=== PATIENT | female | born 1980 | race Caucasian/White ===

== ENCOUNTER 2023-01-15 14:25 | Outpatient (OUT) | payer BC, SELFPAY | END 2023-01-15 14:26 | disposition home or self-care (01) | PROVIDERS: PCP Family Medicine; Visit Provider Obstetrics & Gynecology | DX: Z01.810 Encounter for preprocedural cardiovascular examination (principal); Z30.2 Encounter for sterilization; N92.0 Excessive and frequent menstruation with regular cycle; N93.9 Abnormal uterine and vaginal bleeding, unspecified; R10.2 Pelvic and perineal pain | CPT/HCPCS: 93005 ==

== ENCOUNTER 2023-01-22 06:07 | Day surgery (SDC) | payer BC, SELFPAY ==
--- NOTE | 2023-01-15 14:44 | ECG_ITS ---
[facility] Test Date: 2023-01-15 Pat Name: CANDIDA LORENZO Department: Room: - Gender: Female [employer] Director: : 1980 Requested By: JAIMEE FRANCO Order Number: [id number] Reading MD: JUANCARLOS WANG Measurements Intervals [place] Rate: 65 P: 49 OK: 159 QRS: -1 QRSD: 87 T: 16 QT: 378 QTc: 395 Interpretive Statements SINUS RHYTHM LOW QRS VOLTAGE IN PRECORDIAL LEADS [QRS DEFLECTION < 1.0 mV IN CHEST LEADS] No previous ECG available for comparison Electronically Signed On 01-18-2023 13:05:09 EDT by JUANCARLOS WANG
[2023-01-15 15:06] VITALS: BP 118/70; PULSE 85; RESP 20; TEMP 36.6; O2SAT 97; BMI 42.7
[2023-01-22] VITALS (13 sets, daily range): BP systolic 99–151; BP diastolic 63–87; PULSE 40–74; RESP 12–21; TEMP 36.4–36.6; O2SAT 92–98; BMI 41.8
[2023-01-22 06:33] LABS: Basophils Percent Auto 0.2 % (0.2-2.0); Eosinophils Absolute Auto 0.1 10^3/uL (0.0-0.7); Eosinophils Percent Auto 1.2 % (0.9-7.0); Hematocrit 40.6 % (36.0-48.0); Immature Granulocytes Abs Auto 0.02 10^3/uL (0.00-0.03); Immature Granulocytes Pct Auto 0.3 % (0.0-0.5); Lymphocytes Absolute Auto 1.6 10^3/uL (1.2-3.8); Lymphocytes Percent Auto 26.1 % (20.5-60.0); Mean Corpuscular HGB Conc 34.5 g/dL (29.9-35.2); Mean Corpuscular Hemoglobin 32.9 pg (26.7-34.0); Mean Corpuscular Volume 95.3 fL (81.0-99.0); Mean Platelet Volume 10.7 fL (9.5-13.5); Monocytes Absolute Auto 0.5 10^3/uL (0.3-0.8); Monocytes Percent Auto 8.6 % (1.7-12.0); Neutrophils Absolute Auto 3.9 10^3/uL (1.4-6.5); Neutrophils Percent Auto 63.6 % (43.0-75.0); Platelet Count 276 10^3/uL (150-450); Red Blood Count 4.26 10^6/uL (4.20-5.40); Red Cell Distribution Width 12.8 % (11.0-15.0); White Blood Count 6.1 10^3/uL (4.0-11.0)
[2023-01-22] MEDS: LACTATED RINGER'S SOLUTION 1,000 ML 50 ML IV ×2 (06:40→10:10)
[2023-01-22 06:54] LABS: HCG Quantitative <1 mIU/mL
--- NOTE | 2023-01-22 09:01 | P.ON_ITS ---
Brief Operative Note Date of procedure: 01/22/23 Pre-op diagnosis: pelvic pain, aub, dysmenorrhea Post-op diagnosis: same as pre-op Procedure: NAME OF PROCEDURE: robotic assisted bilateral laparoscopic salpingectomy with removal of essure coils, with lt ovarian cystectomy, rt ovarian cystotomy PROCEDURE: The patient was taken back to the Operating Room where she was given general anesthesia without difficulty. She was then prepped and draped in the normal sterile fashion after being placed in a dorsal lithotomy position. A wet sponge stick was placed into the patient's vagina. Attention was then turned to the patient's abdomen, where a scalpel was used to make a small infraumbilical incision. The S retractors were then used to dissect the underlying layers until the fascia could be seen. The fascia was then grasped with Bart clamps and tented up. A knife was then used to make a small incision to the fascia. The muscle was identified, at that time two sutures of #0 Vicryl on a GI needle was then used and placed through the fascia. the peritoneum was then identified and entered bluntly. The 10-4 Christian was then placed into the patient's abdomen. This was confirmed with direct visualization of the bowel, using the laparoscope. The patient's abdomen was then insufflated using approximately 4 liters of CO2 gas. Survey of the patient's abdomen demonstrated ovaries with bilateral ovarian cyst. normal appearing tubes and uterus. A second and third rt and lt lateral robotic ports which were 8 mm in size, was then placed after the skin incision was made under direct visualization .robotic arms were engaged. The patient's tube on the patient's right side was identified and tented up using a grasper, the vessel sealer apparatus was then used to come across the mesosalpingx from the fimbriated end to the insertion site at the uterus, the tube was then amputated and removed in its entirety. The essure coils were removed in its entirety. This was done on the contralateral side. The tubes were the removed from the patients abdomen along with coils, lt ovarian cystectomy was performed using vessel sealer and rt ovarian cystotomy using vessel sealer Excellent hemostasis was noted. The lateral ports were then moved under direct visualization with excellent hemostasis. All instruments were removed from the patient's abdomen. The fascia was closed using the #0 Vicryl on GI needle. The skin was closed using 4-0 Vicryl subcuticularly. All instruments were removed from the patient's vagina as well. The patient was taken out of the dorsal lithotomy position and placed in the supine position and taken to r ecovery in stable condition. Sponge, lap and needle counts were correct x2. Anesthesia: DASHA Surgeon: Jacoby Green Director Executive Communications: Edita Hi Estimated blood loss (mL): 5 Pathology: none sent (tubes and coils) Condition: stable Disposition: PACU
[2023-01-22] MEDS: HYDROMORPHONE HCL 0.5 MG/0.5 ML SYRINGE 0.4 MG IV ×2 (09:25→09:30)
== END 2023-01-22 11:31 | disposition home or self-care (01) ==
PROVIDERS: PCP Family Medicine; Visit Provider Obstetrics & Gynecology
PROC: (CPT 58563; principal; 2023-01-22 07:30)
DX: Z30.2 Encounter for sterilization (principal); N92.0 Excessive and frequent menstruation with regular cycle; N93.9 Abnormal uterine and vaginal bleeding, unspecified; R10.2 Pelvic and perineal pain; N83.8 Other noninflammatory disorders of ovary, fallopian tube and broad ligament; Z87.891 Personal history of nicotine dependence; N83.202 Unspecified ovarian cyst, left side; N83.201 Unspecified ovarian cyst, right side
CPT/HCPCS: 58563; 58661; 36415; 84702; 85025; 88304; 88305; J1170; J2704

== ENCOUNTER 2023-10-21 15:51 | Outpatient (OUT) | payer OTHER, SELFPAY ==
--- NOTE | 2023-10-21 15:58 | MM_ITS ---
Patient Name: CANDIDA LORENZO MR#: [id number] : 1980 Exam Date: 10/21/2023 Ordering Doctor: DR Jacoby Green . RADIOLOGY REPORT PROCEDURE: MM TOMOSYNTHESIS SCREENING BI COMPARISON: MG MAMM SCREEN LINDA W CAD, 02/11/2018. MG MAMM SCREEN LINDA W CAD, 03/07/2019. INDICATIONS: Screening Calculator Name NCI Breast Cancer Risk Assessment Tool 5 Year Breast Cancer Risk 0.60% Lifetime Breast Cancer Risk 7.00% Personal Breast Cancer No Personal Ovarian Cancer No Treatments None Family Cancers None LOCATION: [facility] BREAST COMPOSITION: There are scattered areas of fibroglandular density. FINDINGS: DIAGNOSTIC CATEGORY 1--NEGATIVE. NO CHANGE FROM COMPARISON ASSESSMENT. Scattered benign-appearing calcifications are present. Scattered benign-appearing lymph nodes are present. RIGHT BREAST: No significant suspicious finding. LEFT BREAST: No significant suspicious finding. RECOMMENDATIONS: ROUTINE MAMMOGRAM AND CLINICAL EVALUATION IN 12 MONTHS. PLEASE NOTE: A NORMAL MAMMOGRAM DOES NOT EXCLUDE THE POSSIBILITY OF BREAST CANCER. A CLINICALLY SUSPICIOUS PALPABLE LUMP SHOULD BE BIOPSIED. Dictated by: Jem Castro MD on 10/22/2023 at 09:39 Approved by: Jem Castro MD on 10/22/2023 at 09:57
[2023-10-21 16:59] LABS: Basophils Percent Auto 0.3 % (0.2-2.0); Eosinophils Absolute Auto 0.1 10^3/uL (0.0-0.7); Eosinophils Percent Auto 1.2 % (0.9-7.0); Hematocrit 37.8 % (36.0-48.0); Hemoglobin 13.3 g/dL (12.0-16.0); Immature Granulocytes Abs Auto 0.02 10^3/uL (0.00-0.03); Immature Granulocytes Pct Auto 0.3 % (0.0-0.5); Lymphocytes Absolute Auto 1.7 10^3/uL (1.2-3.8); Lymphocytes Percent Auto 22.8 % (20.5-60.0); Mean Corpuscular HGB Conc 35.2 g/dL (29.9-35.2); Mean Corpuscular Hemoglobin 32.6 pg (26.7-34.0); Mean Corpuscular Volume 92.6 fL (81.0-99.0); Mean Platelet Volume 10.6 fL (9.5-13.5); Monocytes Absolute Auto 0.6 10^3/uL (0.3-0.8); Monocytes Percent Auto 7.7 % (1.7-12.0); Neutrophils Absolute Auto 5.2 10^3/uL (1.4-6.5); Neutrophils Percent Auto 67.7 % (43.0-75.0); Platelet Count 279 10^3/uL (150-450); Red Blood Count 4.08 10^6/uL (4.20-5.40); Red Cell Distribution Width 12.3 % (11.0-15.0); White Blood Count 7.6 10^3/uL (4.0-11.0)
== END 2023-10-21 15:52 | disposition home or self-care (01) ==
LOC: MAMMO 15:53
PROVIDERS: PCP Family Medicine; Visit Provider Obstetrics & Gynecology
DX: Z12.31 Encounter for screening mammogram for malignant neoplasm of breast (principal); Z79.899 Other long term (current) drug therapy
CPT/HCPCS: 36415; 77063; 77067; 85025

== ENCOUNTER 2024-02-03 16:02 | Outpatient (OUT) | payer OTHER, SELFPAY ==
--- OUTSIDE RECORDS SUMMARY | 2024-02-03 16:16 | XMS_ITS | CCD ---
Author Organization [facility] Care Team Providers Care Librarian Helper Name Role Phone ERICKA TAMEZ Admitting Unavailable ERICKA TAMEZ Attending MARICRUZ Haddad V Consulting Unavailable ERICKA TAMEZ Consulting Unavailable BRENNAN MARI Attending Unavailable KWAN LUNDBERG Attending Unavailab KWAN Barriga Attending Rosendoab JESSICA Mejía Attending Unavailable KWAN LUNDBERG Referring UnavailKWAN Hernandez Attending Rosendoab BRENNAN Sandra Attending Unavailable BRENNAN MARI Attending Unavailable Medications Current Medications Medication Drug Class(es) Dates Sig (Normalized) Sig (Original) 24 hr metFORMIN hydrochloride 500 mg extended release oral tablet (1 source) Biguanide Start: 10-30-2023 take 500 mg by mouth once daily in the evening Metformin Active 500 MG PO Every evening October 30, 2023 12:00am ondansetron 4 mg disintegrating oral tablet (1 source) Serotonin-3 Receptor Antagonist Start: 10-30-2023 take 4 mg by mouth every six hours Ondansetron Active 4 MG PO Every 6 hours 15 5 October 30, 2023 12:00am rizatriptan 10 mg oral tablet (1 source) Serotonin-1b and Serotonin-1d Receptor Agonist Start: 10-30-2023 Rizatriptan Active 10 MG PO As Directed October 30, 2023 12:00am semaglutide (1 source) Start: 10-30-2023 semaglutide Active 1.2 MG IM October 30, 2023 12:00am Problems Problem Classification Problem Date Documented Da te Episodic/Chronic Headache; including migraine (2 sources) Migraine; Translations: [Migraine, unspecified, not intractable, without status migrainosus] 10-30-2023 Chronic Other screening for suspected conditions (not mental disorders or infectious disease) (4 sources) Encounter for screening mammogram for malignant neoplasm of breast; Translations: [ENC SCR MAMMO MALIG NEOPLASM BREAST] Onset: 03-07-2019 Episodic Results Test Name Value Interpretation Reference Range Facil ity Q - CULTURE,URINE,ROUTINEon 04-28-2021 CULTURE, URINE, ROUTINE SEE NOTE Normal [facility] [employer]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 No further testing will be performed. If clinically indicated, recollection using a method to minimize contamination, with prompt transfer to Urine Culture Transport Tube, is recommended. Performed By: #### [id number] #### [facility] Default [address] [place] [address] MG MAMM SCREEN LINDA W CADon 1 05-07-2018 MG MAMM SCREEN LINDA W CAD Patient: CANDIDA LORENZO Exam Date: 03/07/2019 : 1980 Gender:F Ordering : ROSELIA TAMEZ Admission #: [id number] Family : Order #: [id number] CLICK HERE TO VIEW EXAM RADIOLOGY REPORT PROCEDURE: MAMMOGRAM BILATERAL SCREENING DIGITAL WITH COMPUTER AIDED DETECTION COMPARISON: MG MAMM SCREEN LINDA W CAD, 10/06/2016. MG MAMM SCREEN LINDA W CAD, 02/11/2018. INDICATIONS: Screening mammography Calculator Name NCI Breast Cancer Risk Assessment Tool 5 Year Breast Cancer Risk 0.40% Lifetime Breast Cancer Risk 7.30% Personal Breast Cancer No Personal Ovarian Cancer No Treatments None Family Cancers None LOCATION: [facility] BREAST COMPOSITION: Scattered areas fibroglandular density. FINDINGS: DIAGNOSTIC CATEGORY 2--BENIGN FINDING NO CHANGE FROM COMPARISON ASSESSMENT. Bilateral square markers indicate open sores on the patient's skin, no corresponding mammographic abnormality. Scattered benign-appearing calcifications are present. Scattered benign-appearing lymph nodes are present. RIGHT BREAST: No significant suspicious finding. LEFT BREAST: No significant suspicious finding. RECOMMENDATIONS: ROUTINE MAMMOGRAM AND CLINICAL EVALUATION IN 12 MONTHS. PLEASE NOTE: A NORMAL MAMMOGRAM DOES NOT EXCLUDE THE POSSIBILITY OF BREAST CANCER. A CLINICALLY SUSPICIOUS PALPABLE LUMP SHOULD BE BIOPSIED. Dictated by: Maricruz Castro M.D. on 03/08/2019 at 07:36 Approved by: Maricruz Castro M.D. on 03/08/2019 at 07:38 Normal [facility] Vital Signs Date Time Vital Sign Value Performing Clinician Arianna kenny 10-30-2023 13:57-0400 Body height 162.56 cm [facility] 10-30-2023 13:57-0400 Body mass index (BMI) [Ratio] 40.6 kg/m2 [facility] 10-30-2023 13:57-0400 Body temperature 98.2 [degF] [facility] 10-30-2023 13:57-0400 Body weight 107.5 kg [facility] 10-30-2023 13:57-0400 Diastolic blood pressure 82 mm[Hg] [facility] 10-30-2023 13:57-0400 Heart rate 71 /min [facility] 10-30-2023 13:57-0400 Respiratory rate 18 /min [facility] 10-30-2023 13:57-0400 SaO2% (BldA) [Mass fraction] 98 % [facility] 10-30-2023 13:57-0400 Systolic blood pressure 127 mm[Hg] [facility] Encounters Encounter Date Encounter Type Care Provider Facility Start: 12-20-2023 End: 12-20-2023 ambulatory BRENNAN MARI Not Available Start: 11-22-2023 End: 11-22-2023 ambulatory KWAN LUNDBERG Not Available Start: 11-17-2023 End: 11-17-2023 ambulatory JESSICA HARPER Not Available Start: 11-10-2023 End: 11-10-2023 ambulatory KWAN LUNDBERG Not Available Start: 10-30-2023 End: 10-30-2023 ambulatory [facility] Work Phone: Start: 10-30-2023 End: 10-30-2023 Patient encounter procedure [facility] Work Phone: Start: 05-26-2023 End: 05-26-2023 ambulatory KWAN BAKERPATRICK Not Available Start: 05-05-2023 End: 05-05-2023 ambulatory BRENNAN MARI Not Available Start: 04-07-2023 End: 04-07-2023 ambulatory BRENNAN MARI Not Available Start: 03-07-2019 End: 03-08-2019 Patient encounter procedure ERICKA TAMEZ Facility:[facility] Payers Date Payer Category Payer Unknown [id number] 2023 Unknown 1980 Unknown [id number] 2.16.84 [id number] 1980 Unknown [id number] 2.16.84 [id number] 1980 Unknown [id number] 2.16.84 [id number] 1980 Unknown [id number] 2.16.84 [id number] 1980 Unknown [id number] 2.16.84 [id number] 1980 Unknown [id number] 2.16.84 [id number] 1980 Unknown [id number] [id number] .[id number] 1980 Unknown [id number] [id number] .[id number] 1961 Unknown [id number] Social History Date Type Detail Facility Start: [facility]23 [facility] Start: 1980 Sex Assigned At Female F [facility] Evaluation note Note Date & Type Note Facility Evaluation note Diagnosis Onset Date Migraines acute [facility] Work Phone: Summary Purpose Family History No Family History Records FoundNo Family History Records FoundNo Family History Records Found Advance Directives No Advanced Directives Records Found Advance Directive Response Recorded Date/ Time Advance Directives No October 29 1:35pm Chief Complaint and Reason for Visit Chief Complaint Headache, nausea, po ss migraine Reason for Visit Migraines Additional Source Comments INFORMATION SOURCE (unrecogn ized section and content) DATE CREATED AUTHOR 03/17/2019 [facility] DATE CREATED AUTHOR AUTHOR'S ORGANIZ ATION 04/30/2021 [facility] DATE CREATED AUTHOR AUTHOR'S ORGANIZ ATION 12/20/2023 [facility] EPIC Care Teams (unrecognized sec tion and content) Team Status: Active Member Role Status Dates Angie Barcenas MD Primary Care Provide r Active Team Status: Inactive Member Role Status Dates Marla Bruno APRN Attending Provider Active Start: October 30, 2023 End: October 30, 2023 Angie Barcenas MD Primary Care Provide r Active Start: October 30, 2023 End: October 30, 2023 Goals (unrecognized section and content) Goals may be documented in a n alternate section FOR RECORDS PERTAINING TO PATIENTS WHO ARE OR HAVE BEEN ENROLLED IN A CHEMICAL DEPENDENCY/SUBSTANCEABUSE PROGRAM, SOME INFORMATION MAY BE OMITTED. This clinical summary was aggregated from multiple sources. Caution should be exercised in using it in the provision of clinical care. This summary normalizes information from multiple sources, and as a consequence, information in this document may materially change the coding, format and clinical context of patient data. In addition, data may be omitted in some cases. CLINICAL DECISIONS SHOULD BE BASED ON THE PRIMARY CLINICAL RECORDS. [employer] [facility]. provides no warranty or guarantee of the accuracy or completeness of information in this document.
[2024-02-03 17:19] LABS: Alanine Aminotransferase 16 U/L (14-59); Albumin Globulin Ratio 1.3; Albumin Level 3.8 g/dL (3.4-5.0); Alkaline Phosphatase 54 U/L (46-116); Anion Gap 10.3; Aspartate Amino Transferase 12 U/L (15-37); BUN Creatinine Ratio 14.1; Calcium 8.9 mg/dL (8.5-10.1); Carbon Dioxide 27.6 mmol/L (21.0-32.0); Chloride 101 mmol/L (98-107); Chol HDL Ratio 2.6; Cholesterol 118 mg/dL (<=200); Estimated GFR (African America >60 (>=60 mL/min/1.73m^2); Estimated GFR (Non-African Ame >60 (>=60 mL/min/1.73m^2); Globulin 2.9 g/dL; Glucose 90 mg/dL (74-106); HDL Cholesterol 45 mg/dL (40-60); LDL Cholesterol Calculated 60.2 mg/dL; Potassium 3.9 mmol/L (3.5-5.1); Sodium 135 mmol/L (136-145); Total Protein 6.7 g/dL (6.4-8.2); Triglycerides 64 mg/dL (<=150); VLDL CHOLESTEROL 12.8 mg/dL
== END 2024-02-03 16:03 | disposition home or self-care (01) ==
LOC: LAB 16:02
PROVIDERS: PCP Family Medicine; Visit Provider Physician Assistant
DX: Z79.899 Other long term (current) drug therapy (principal)
CPT/HCPCS: 36415; 80053; 80061

== ENCOUNTER 2024-07-03 20:53 | Outpatient (REF) | payer BC, SELFPAY ==
--- OUTSIDE RECORDS SUMMARY | 2024-07-03 21:09 | XMS_ITS | CCD ---
Author Organization [facility] Care Team Providers Care Cmm Inspector Name Role Phone ERICKA TAMEZ Admitting Unavailable ERICKA TAMEZ Attending Unavailable MARICRUZ MARTINEZ V Consulting Unavailable ERICKA TAMEZ Consulting Unavailable Angie Barcenas MD Primary Care Provider Toya OSORIO, Jeri Cesar Unavailable CORINA MARI Attending Unavailable JERI PITTMAN Attending JESSICA Gardner Attending Unavailable JERI PITTMAN Referring JERI Lindquist Attending CORINA Loyd Attending Unavailable Medications Current Medications Medication Drug Class(es) Dates Sig (Normalized) Sig (Original) [id number] 200 actuat albuterol 0.09 mg/actuat metered dose inhaler (5 sources) beta2-Adrenergic Agonist Start: 11-22-2023 End: 11-21-2024 take 2 puff(s) by inhalation every four hours for wheezing albuterol HFA 90 mcg/act inhaler Indications: Acute cough Inhale 2 puffs every 4 (four) hours if needed for wheezing 18 g 11/22/2023 11/21/2024 Active meclizine hydrochloride 25 mg oral tablet (5 sources) Antiemetic Start: 12-09-2023 take 0.5 tablet by mouth twice daily as needed for dizziness meclizine (Antivert) 25 MG tablet Indications: Vertigo Take 0.5 tablets (12.5 mg) by mouth 2 (two) times a day as needed for dizziness 10 tablet 12/09/2023 Active 24 hr metFORMIN hydrochloride 500 mg extended release oral tablet (6 sources) Biguanide Start: 04-03-2024 take 1 tablet by mouth every twenty-four hours at mealtime metFORMIN XR (Glucophage-XR) 500 MG 24 hr tablet Indications: Weight gain Take 1 tablet (500 mg) by mouth in the evening. Take with meals Do not crush, chew, or split. 30 tablet 11 04/03/2024 Active Start: 12-09-2023 take 1 tablet by aidan th every twenty-four hours at mealtime metFORMIN XR (Glucophage-XR) 500 MG 24 hr tablet Indications: Weight gain Take 1 tablet (500 mg) by mouth in the evening. Take with meals Do not crush, chew, or split. 30 tablet 11 12/09/2023 Active Start: 10-30-2023 take 500 mg by mouth once daily in the evening Metformin Active 500 MG PO Every evening October 30, 2023 12:00am metroNIDAZOLE 0.0075 mg/mg topical gel (5 sources) Nitroimidazole Antimicrobial Start: 06-02-2023 metroNIDAZOLE (Metrogel) 0.75 % gel Indications: Rosacea Apply topically 2 (two) times a day 45 g 3 06/02/2023 Active ondansetron 4 mg disintegrating oral tablet (1 source) Serotonin-3 Receptor Antagonist Start: 10-30-2023 take 4 mg by mouth every six hours Ondansetron Active 4 MG PO Every 6 hours 15 5 October 30, 2023 12:00am phentermine hydrochloride 37.5 mg oral tablet (2 sources) Sympathomimetic Amine Anorectic Start: 06-05-2024 End: 07-05-2024 take 1 tablet by mouth before mealtime phentermine (Adipex-P) 37.5 MG tablet Indications: Encounter for weight management Take 1 tablet (37.5 mg) by mouth in the morning. Take before meals. 30 tablet 06/05/2024 07/05/2024 Active Probiotic tablet delayed-release (5 sources) Probiotic tablet delayed-release as directed Orally Active rizatriptan 10 mg oral tablet (7 sources) Serotonin-1b and Serotonin-1d Receptor Agonist Start: 04-27-2024 take 1 tablet by mouth once daily as needed rizatriptan (Maxalt) 10 MG tablet Indications: Migraine without aura and without status migrainosus, not intractable (CMS/HCC) Take 1 tablet (10 mg) by mouth Daily as needed for migraine 10 tablet 04/27/2024 Active Start: 01-30-2024 take 1 tablet by aidan th once daily as needed rizatriptan (Maxalt) 10 MG tablet Indications: Migraine without aura and without status migrainosus, not intractable (CMS/HCC) Take 1 tablet (10 mg) by mouth Daily as needed for migraine 10 tablet 1 01/30/2024 Active Start: 12-13-2023 End: 01-28-2024 take 1 tablet by mouth once daily as needed rizatriptan (Maxalt) 10 MG tablet Indications: Migraine without aura and without status migrainosus, not intractable (CMS/HCC) Take 1 tablet (10 mg) by mouth Daily as needed for migraine 10 tablet 12/13/2023 01/28/2024 Discontinued (Reorder) Start: 10-30-2023 Rizatriptan Ac tive 10 MG PO As Directed October 30, 2023 12:00am semaglutide (1 source) Start: 10-30-2023 semaglutide Ac tive 1.2 MG IM October 30, 2023 12:00am Completed/Discontinued Medications Medication Drug Class(es) Dates Sig (Normalized) Sig (Original) 0.25 mg, 0.5 mg dose 1.5 ml semaglutide 1.34 mg/ml pen injector (5 sources) Start: 06-08-2023 End: 06-05-2024 semaglutide (Ozempic) 2 MG/1.5ML solution pen-injector Indications: Insulin resistance FIRST MONTH inject 0.25 mg under the skin once weekly; then SECOND MONTH inject 0.5 mg under the skin 1 (one) time per week for 4 doses. 1 each 1 06/08/2023 06/05/2024 Discontinued Problems Active Problems Problem Classification Problem Date Documented Da te Episodic/Chronic Adjustment disorders (5 sources) Adjustment disorder with mixed anxiety and depressed mood; Translations: [Adjustment disorder with mixed anxiety and depressed mood] Onset: 01-26-2023 01-26-2023 Chronic Administrative/social admission (2 sources) Patient encounter status; Translations: [Persons encountering health services in other specified circumstances] 06-05-2024 Episodic Gastritis and duodenitis (5 sources) Chronic gastritis; Translations: [Unspecified chronic gastritis without bleeding] Onset: 01-26-2023 Resolved: 01-26-2023 01-26-2023 Chronic Headache; including migraine (13 sources) Migraine; Translations: [Migraine, unspecified, not intractable, without status migrainosus] Onset: 09-25-2022 10-30-2023 Chronic Other nervous system disorders (5 sources) Polyneuropathy; Translations: [Polyneuropathy, unspecified] Onset: 01-26-2023 01-26-2023 Chronic Other nutritional; endocrine; and metabolic disorders (5 sources) Obesity caused by energy imbalance; Translations: [Other obesity due to excess calories] Onset: 01-26-2023 01-26-2023 Chronic Other screening for suspected conditions (not mental disorders or infectious disease) (4 sources) Encounter for screening mammogram for malignant neoplasm of breast; Translations: [ENC SCR MAMMO MALIG NEOPLASM BREAST] Onset: 03-07-2019 Episodic Other upper respiratory disease (5 sources) Allergic rhinitis due to pollen; Translations: [Allergic rhinitis due to pollen] Onset: 01-26-2023 01-26-2023 Chronic Past or Other Problems Problem Classification Problem Date Documented Da te Episodic/Chronic Cardiac dysrhythmias (5 sources) Irregular heart beat; Translations: [Cardiac arrhythmia, unspecified] Onset: 01-26-2023 Resolved: 01-26-2023 01-26-2023 Chronic Results Test Name Value Interpretation Reference Range Facil ity ALL LIPID PROFILE (FASTING)o n 02-03-2024 CHOL HDL RATIO 2.6 [facility] Comment on above: 3.3 - 4.4 LOW RISK 4.4 - 7.1 AVERAGE RISK 7.1 - 11.0 MODERATE RISK >11.0 HIGH RISK Cholesterol [Mass/Vol] 118 mg/dL NINF - 200 mg/dL [facility] Cholesterol in HDL [Mass/Vol] 45 mg/dL 40 - 60 mg/dL [facility] Comment on above: > or =60 mg/dl - LOW CARDIOVASCULAR RISK <40 mg/dl - HIGH CARDIOVASCULAR RISK Magnesium [Mass/Vol] 60.2 mg/dL [facility] Comment on above: <100 mg/dl OPTIMAL 100-129 mg/dl NEAR OR ABOVE OPTIMAL 130-159 mg/dl BORDERLINE HIGH 160-189 mg/dl HIGH >190 mg/dl VERY HIGH Magnesium [Mass/Vol] 12.8 mg/dL [facility] Triglyceride [Mass/Vol] 64 mg/dL NINF - 150 mg/dL [facility] CMP (CMP) (FOR REMOTE FH C USE)on 02-03-2024 Albumin [Mass/Vol] 3.8 g/dL 3.4 - 5.0 g/dL NO [facility] ALBUMIN GLOBULIN RATIO 1.3 [facility] ALP [Catalytic activity/Vol] 54 U/L 46 - 116 U/L [facility] ALT [Catalytic activity/Vol] 16 U/L 14 - 59 U/L [facility] Anion gap [Moles/Vol] 10.3 mmol/L [facility] AST [Catalytic activity/Vol] 12 U/L Low 15 - 37 U/L [facility] Bilirubin [Mass/Vol] 1.0 mg/dL 0.2 - 1.0 mg/dL [facility] Calcium [Mass/Vol] 8.9 mg/dL 8.5 - 10. 1 mg/dL [facility] Chloride [Moles/Vol] 101 mmol/L 98 - 107 mmol/L [facility] CO2 [Moles/Vol] 27.6 mmol/L 21.0 - 32.0 mmol/L [facility] Creatinine [Mass/Vol] 0.78 mg/dL 0.55 - 1.02 mg/dL [facility] GFR/1.73 sq M.predicted CKD-EPI (S/P/Bld) [Vol rate/Area] >60 >=60 mL/min/1.73m 2 [facility] Globulin (S) [Mass/Vol] 2.9 g/dL [facility] Glucose [Mass/Vol] 90 mg/dL 74 - 106 mg/dL NO [facility] Interpretation and review of laboratory results Abnormal [facility] Potassium [Moles/Vol] 3.9 mmol/L 3.5 - 5.1 mmol/L [facility] Protein [Mass/Vol] 6.7 g/dL 6.4 - 8.2 g/dL NO [facility] Sodium [Moles/Vol] 135 mmol/L Low 136 - 145 mmol/L [facility] TBH EGFR-NON AF ALGERIAN >60 >=60 mL/min/1.73m 2 [facility] Urea nitrogen [Mass/Vol] 11.0 mg/dL 7.0 - 18.0 mg/dL [facility] Urea nitrogen/Creatinine [Mass ratio] 14.1 mg/mg [facility] No Panel Informationon 02-02 [facility] - CULTURE,URINE,ROUTINEon 04-28-2021 CULTURE, URINE, ROUTINE SEE NOTE Normal [facility] Iv Therapy Nurse Comment on above: Order Comment: [facility] Testing performed at: [facility], [facility], [address], [address] [facility], [place], [address], Sample Steamer: Richard Nguyen MD [facility] Collection Date/Time: [id number] [facility] Results Received Date/Time: [id number] [facility] Reported Date/Time: [id number] Result Comment: CULT URE, URINE, ROUTINE Micro Number: [id number] Test Status: Final Specimen Source: Urine Specimen Quality: Adequate Result: Growth of mixed shiraz was isolated, suggesting probable contamination. No further testing will be performed. If clinically indicated, recollection using a method to minimize contamination, with prompt transfer to Urine Culture Transport Tube, is recommended. Performed By: #### [id number] #### [facility] Default [address] [place] [address] MG MAMM SCREEN LINDA W CADon 1 05-07-2018 MG MAMM SCREEN LINDA W CAD Patient: CANDIDA LORENZO Exam Date: 03/07/2019 : 1980 Gender:F Ordering : ROSELIA TAMEZ Admission #: [id number] Family : Order #: [id number] CLICK HERE TO VIEW EXAM RADIOLOGY REPORT [...] Treatments None Family Cancers None LOCATION: [facility] BREAST COMPOSITION: Scattered areas fibroglandular density. [...] LUMP SHOULD BE BIOPSIED. Dictated by: Maricruz Martinez M.D. on 03/08/2019 at 07:36 Approved by: Maricruz Martinez M.D. on 03/08/2019 at 07:38 Normal [facility] Vital Signs Date Time Vital Sign Value Performing Clinician Facility 06-05-2024 15:58-0500 Body mass index (BMI) [Ratio] 42.4 kg/m2 Corina BOOKER Work Phone: [facility] 06-05-2024 15:58-0500 Body weight 115.58 kg Corina BOOKER Work Phone: [facility] 06-05-2024 15:58-0500 Diastolic blood pressure 70 mm[Hg] Corina BOOKER Work Phone: [facility] 06-05-2024 15:58-0500 Systolic blood pressure 120 mm[Hg] Corina BOOKER Work Phone: [facility] 10-30-2023 13:57-0400 Body height 162.56 cm [facility] 10-30-2023 13:57-0400 Body mass index (BMI) [Ratio] 40.6 kg/m2 [facility] 10-30-2023 13:57-0400 Body temperature 98.2 [degF] [facility] 10-30-2023 13:57-0400 Body weight 107.5 kg [facility] 10-30-2023 13:57-0400 Diastolic blood pressure 82 mm[Hg] [facility] 10-30-2023 13:57-0400 Heart rate 71 /min [facility] 10-30-2023 13:57-0400 Respiratory rate 18 /min [facility] 10-30-2023 13:57-0400 SaO2% (BldA) [Mass fraction] 98 % [facility] 10-30-2023 13:57-0400 Systolic blood pressure 127 mm[Hg] [facility] Encounters Encounter Date Encounter Type Care Provider Facility Start: 06-05-2024 End: 06-05-2024 Office outpatient visit 15 minutes Corina BOOKER Work Phone: [facility] Comment on above: Encounter for weight management Start: 06-05-2024 End: 06-05-2024 ambulatory CORINA KAMALJIT Not Available Start: 06-05-2024 End: 06-05-2024 Bamboo flowsheet Corina BOOKER Work Phone: [facility] Start: 06-05-2024 End: 06-05-2024 Bamboo flowsheet Corina BOOKER Work Phone: [facility] Start: 02-03-2024 End: 02-03-2024 [facility] Result Encounter Generic External Data Provider [facility] External Department Unsolicited Start: 02-03-2024 End: 02-03-2024 [facility] Result Encounter Generic External Data Provider [facility] External [facility] Unsolicited Start: 01-28-2024 End: 01-30-2024 Refill Jeri Pittman [employer]PER[employer] Work Phone: [facility] Comment on above: Migraine without aur a and without status migrainosus, not intractable (CMS/[facility]) Start: 12-20-2023 End: 12-20-2023 ambulatory CORINA KAMALJIT Not Available Start: 11-22-2023 End: 11-22-2023 ambulatory JERI A PITTMAN Not Available Start: 11-17-2023 End: 11-17-2023 ambulatory JESSICA HARPER Not Available Start: 11-10-2023 End: 11-10-2023 ambulatory JERI A PITTMAN Not Available Start: 10-30-2023 End: 10-30-2023 ambulatory [facility] Work Phone: Start: 10-30-2023 End: 10-30-2023 Patient encounter procedure [facility] Work Phone: Start: 03-07-2019 End: 03-08-2019 [facility] Procedures Date Procedure Procedure Detail Performing Clinician Start: 02-03-2024 ALL LIPID PROFILE (FASTING) Corina BOOKER Work Phone: Start: 02-03-2024 [facility] CMP (CMP) (FOR R [facility] USE) Corina BOOKER Work Phone: Start: 10-22-2023 Mammography Jeri maddox NP Work Phone: Start: 08-17-2022 Microscopic observat ion [Identifier] in Cervix by Cyto stain Jeri Pittman [employer] Work Phone: Plan of Treatment Date Care Activity Detail Author Start: 08-18-2027 Screening for malign ant neoplasm of cervix [facility] Start: 10-21-2024 Screening for malign ant neoplasm of breast Mammogram [facility] Start: 07-03-2024 End: 07-03-2024 Patient encounter procedure 07/03/2024 2:00 PM EST Office Visit [facility] [address] [place] [address] Corina Mari PA [address] [place] [address] [facility] Start: 06-05-2024 End: 06-05-2024 Patient encounter procedure 06/05/2024 4:00 PM EST Office Visit [facility] [address] [place] [address] Corina Mari PA [address] [place], [place] [id number] Arrived [facility] Comment on above: Arrived Start: 01-02-2024 Influenza vaccination Influenza Vacc ine (#1) [facility] Start: 1980 Screening for malign ant neoplasm of colon [facility] Payers Date Payer Category Payer [facility] BCBS [id number] 2024 Unknown [id number] 2023 Unknown [id number] 2023 Unknown [id number] 1980 Unknown [id number] 1980 Unknown [id number] 1980 Unknown [id number] 1980 Unknown [id number] 1980 Unknown [id number] 1980 Unknown [id number] 1959 Unknown [id number] Social History Date Type Detail Facility Start: 10-14-2022 End: 10-30-2023 Tobacco smoking status NHIS Ex-smoker (finding) [facility] Start: 1980 Sex Assigned At Female [facility] History of tobacco use Current smoker [facility] History of tobacco use Cigarette Smoker [facility] Start: 10-14-2022 Tobacco use and exposure Smokeless tobacco non-user [facility] Start: 12-20-2023 End: 06-05-2024 Alcoholic beverage intake Current drinker of alcohol (finding) [facility] Start: 01-19-2023 End: 11-22-2023 History of Social function [facility] Start: 01-19-2023 End: 11-22-2023 Humiliation, Afraid, Rape, and Kick questionnaire [HARK] [facility] Within the last year , have you been afraid of your partner or ex-partner? No [facility] In a typical week, h ow many times do you talk on the telephone with family, friends, or neighbors? Patient declined [facility] Are you now , , , , never or living with a partner? [facility] Do you feel stress - tense, restless, nervous, or anxious, or unable to sleep at night because your mind is troubled all the time - these days [OSQ] Not at all [facility] Start: 05-26-2023 Alcohol Comment Caffeine: 0-1 [facility] Start: 1980 Sex assigned at Not on file [facility] Start: 07-15-2022 Gender identity Identifies as female gender (finding) [facility] History of Present illness Narrative 06-05-2024 Christi Blake LPN - 06/05/2024 4:00 PM EST Note Date & Type Note Facility 06-05-2024 History of Presen t illness Narrative Reason for Appointment: Patient ID: Candida Lorenzo is a 43 y.o. female who presents for encounter for weight management Patient presents today for Encounter for weight management MEDICATIONS Current Outpatient Medications Medication Instructions albuterol HFA 90 mcg/act inhaler 2 puffs, Inhalation, Every 4 hours PRN meclizine (ANTIVERT) 12.5 mg, Oral, 2 times daily PRN metFORMIN XR (GLUCOPHAGE-XR) 500 mg, Oral, Daily with evening meal, Do not crush, chew, or split. metroNIDAZOLE (Metrogel) 0.75 % gel Topical, 2 times daily Probiotic tablet delayed-release as directed Orally rizatriptan (MAXALT) 10 mg, Oral, Daily PRN ALLERGIES No Known Allergies PROBLEMS Active Ambulatory Problems Diagnosis Date Noted Migraine without aura and without status migrainosus, not intractable ([facility]) 09/25/2022 Adjustment disorder with mixed anxiety and depressed mood ([facility]) 01/26/2023 Chronic tension-type headache, not intractable 01/26/2023 Non morbid obesity due to excess calories 01/26/2023 Peripheral polyneuropathy 01/26/2023 Seasonal allergic rhinitis due to pollen 01/26/2023 Resolved Ambulatory Problems Diagnosis Date Noted Chronic gastritis without bleeding 01/26/2023 Irregular heart beat 01/26/2023 Past Medical History: Diagnosis Date Adjustment disorder with anxiety (CMS/HCC) Chronic gastritis Migraine (CMS/HCC) HISTORY PAST MEDICAL HISTORY SOCIAL HISTORY Past Medical History: Diagnosis Date Adjustment disorder with anxiety (CMS/HCC) Chronic gastritis Chronic tension-type headache, not intractable Migraine (CMS/HCC) Peripheral polyneuropathy Social History Tobacco Use Smoking status: Former Types: Cigarettes Smokeless tobacco: Never Vaping Use Vaping status: Never Used Substance Use Topics Alcohol use: Yes Comment: Caffeine: 0-1 Drug use: Never FAMILY HISTORY Family History Problem Relation Name Age of Onset Depression Mother Marlene's thyroiditis Sister Hypothyroidism Sister Other (euthyroid sick syndrome) Sister Polycystic ovary syndrome Sister Insulin resistance Sister Supraventricular tachycardia Sister Asthma Sister Other (idiopathic hives) Sister Vitamin D deficiency Sister Endometriosis Sister from parathyroid gland Other (vitamin b12 deficiency) Sister Other (MTHFR) Sister Polycystic ovary syndrome Sister Pulmonary embolism Sister Other (recovering alcoholic) Brother Cancer Maternal Grandmother No Known Problems Son (4) SURGICAL HISTORY Past Surgical History: Procedure Laterality Date DILATION AND CURETTAGE OF UTERUS 1999 ENDOMETRIAL ABLATION 2022 MAMMOGRAPHY 08/2022 LAPAROSCOPIC TUBAL LIGATION W/ FILCHIE CLIPS 11/06/2011 PAP SMEAR 2020 SALPINGECTOMY Bilateral 01/22/2023 robotic WISDOM TOOTH EXTRACTION 2003 REVIEW OF SYSTEMS Review of Systems: Review of Systems All other systems reviewed and are negative. OBJECTIVE Objective: Physical Exam Constitutional: Appearance: Normal appearance. She is well-developed. Cardiovascular: Rate and Rhythm: Normal rate and regular rhythm. Pulmonary: Effort: Pulmonary effort is normal. Breath sounds: Normal breath sounds. Abdominal: General: Bowel sounds are normal. There is no distension. Palpations: Abdomen is soft. Tenderness: There is no abdominal tenderness. There is no guarding or rebound. Musculoskeletal: General: No swelling. Normal range of motion. Right lower leg: No edema. Left lower leg: No edema. Neurological: Mental Status: She is alert and oriented to person, place, and time. Skin: General: Skin is warm and dry. Psychiatric: Mood and Affect: Mood normal. Behavior: Behavior normal. Vitals and nursing note reviewed. Exam conducted with a physical therapy assistant instructor present. Vitals: Estimated body mass index is 42.4 kg/m as calculated from the following: Height as of 12/20/23: 5' 5 . Weight as of this encounter: 254 lb 12.8 oz. BP: 120/70 No LMP recorded. ASSESSMENT & PLAN ICD-10-CM 1. Encounter for weight management Z76.89 Patient presents today for initial Adipex prescription. The importance of keeping a food journal, proper nutrition/diet, and exercise regimen while taking Adipex has been discussed. Patient verbalized understanding and signed consents to initiate (Adipex) medication therapy. Patient was given a printed prescription signed by provider to take to their local pharmacy. Follow Up: Patient is to return to the office in 1 month for further evaluation to assess patient progress. Weight and blood pressure will need to be captured in order for patient to receive 2nd prescription. Documented by Christi Blake LPN on behalf of: JHONY Kelley documented in this encounter [facility] Telephone encounter Note 01-30-2024 Telephone Encounter - Angie Barcenas MD - 01/30/2024 3:23 PM EDT Note Date & Type Note Facility 01-30-2024 Telephone encount er Note Refills sent. [facility] Note 01-30-2024 Telephone Encounter - Angie Barcenas MD - 01/30/2024 3:23 PM EDT Note Date & Type Note Facility 01-30-2024 Miscellaneous Notes Formattin g of this note might be different from the original. Refills sent. documented in this encounter [facility] Evaluation note Note Date & Type Note Facility Evaluation note Diagnosis Onset Date Migraines acute [facility] Work Phone: Evaluation note Note Date & Type Note Facility Evaluation note Diagnosis Migraine without aura and without status migrainosus, not intractable (CMS/HCC) documented in this encounter [facility] Evaluation note Note Date & Type Note Facility Evaluation note Diagnosis Chronic tension-type headache, not intractable- Primary Chronic tension type headache Migraine without aura and without status migrainosus, not intractable (CMS/HCC) Non morbid obesity due to excess calories Wellness examination Seasonal allergic rhinitis due to pollen Encounter for weight management documented in this encounter [facility] Summary Purpose Family History No Family History [...] and content) DATE CREATED AUTHOR 03/17/2019 [facility] DATE CREATED AUTHOR AUTHOR'S ORGANIZ ATION 04/30/2021 [facility] dical Specialist DATE CREATED AUTHOR AUTHOR'S ORGANIZ ATION 06/07/2024 [facility] d[facility] Specialists EPIC Care Teams (unrecognized sec tion and content) Team Status: Active Member Role Status Dates Angie Barcenas MD Primary Care Provide r Active Team Status: Inactive Member Role Status Dates Marla Bruno APRN Attending Provider Active Start: October 30, 2023 End: October 30, 2023 Angie Barcenas MD Primary Care Provide r Active Start: October 30, 2023 End: October 30, 2023 Cmm Inspector Relationship Specialty Start Date End Date Angie Barcenas MD [address] [place] [address] PCP - General Family Medicine 10/15/22 Cmm Inspector Relationship Specialty Start Date End Date Angie Barcenas MD [address] [place] [address] PCP - General Family Medicine 10/15/22 Cmm Inspector Relationship Specialty Start Date End Date Angie Barcenas MD [address] [place] [address] PCP - General Family Medicine 10/15/22 Jeri Pittman NP [address] [facility] [place] [address] PCP - [facility] 06/03/23 05/02/99 Cmm Inspector Relationship Specialty Start Date End Date Angie Barcenas MD [address] [facility] [place], [place] [id number] PCP - General Family [facility] 10/15/22 Jeri Pittman NP [address] [facility] [place], [place] [id number] PCP - [facility] 06/03/23 05/02/99 Goals (unrecognized section and content) Goals may be documented in a n alternate section Reason for Visit (unrecogniz ed section and content) Reason Onset Date Comments Med Refill 01/28/2024 Reason Comments encounter for weight management FOR RECORDS PERTAINING TO PATIENTS WHO ARE [...] BE BASED ON THE PRIMARY CLINICAL RECORDS. [employer] [facility]. provides no warranty or guarantee of the accuracy or completeness of information in this document.
[2024-07-07 17:08] LABS: Age Gdln ACOG Testing Note (.); HPV Aptima Negative (Negative); IGP, Aptima HPV, rfx 16/18,45 Note (.)
== END 2024-07-03 20:54 | disposition home or self-care (01) ==
LOC: LAB 20:53
PROVIDERS: PCP Family Medicine; Visit Provider Physician Assistant
DX: Z01.419 Encounter for gynecological examination (general) (routine) without abnormal findings (principal)
CPT/HCPCS: 87624; 88175

== ENCOUNTER 2024-10-24 16:21 | Outpatient (OUT) | payer BC, SELFPAY ==
--- NOTE | 2024-10-24 16:23 | MM_ITS ---
Patient Name: CANDIDA LORENZO MR#: [id number] : 1980 Exam Date: 10/24/2024 Ordering Doctor: DR JAIMEE FRANCO . RADIOLOGY REPORT PROCEDURE: MM TOMOSYNTHESIS SCREENING BI COMPARISON: MM TOMOSYNTHESIS SCREENING BI, 10/21/2023. MG MAMM SCREEN LINDA W CAD, 03/07/2019. MG MAMM SCREEN LINDA W CAD, 02/11/2018. MG MAMM SCREEN LINDA W CAD, 10/06/2016. INDICATIONS: Screening for malignant neoplasm Calculator Name [facility] Breast Cancer Risk Assessment Tool 5 Year Breast Cancer Risk 0.60% Lifetime Breast Cancer Risk 6.90% Personal Breast Cancer No Personal Ovarian Cancer No Treatments None Family Cancers None LOCATION: The [facility] BREAST COMPOSITION: There are scattered areas of fibroglandular density. FINDINGS: DIAGNOSTIC CATEGORY 1--NEGATIVE. RIGHT BREAST: No significant suspicious finding. LEFT BREAST: No significant suspicious finding. RECOMMENDATIONS: ROUTINE MAMMOGRAM AND CLINICAL EVALUATION IN 12 MONTHS. PLEASE NOTE: A NORMAL MAMMOGRAM DOES NOT EXCLUDE THE POSSIBILITY OF BREAST CANCER. A CLINICALLY SUSPICIOUS PALPABLE LUMP SHOULD BE BIOPSIED. Dictated by: Jeferson Forman DO on 10/25/2024 at 15:19 Approved by: Jeferson Forman DO on 10/25/2024 at 15:31
--- OUTSIDE RECORDS SUMMARY | 2024-10-24 16:25 | XMS_ITS | Encounter Summary ---
Author Organization [facility] Address [address] [place] [address] Care Team Providers Care Detention Attendant Name Role Phone Angie Barcenas MD Primary Care Provider [phone] Jeri Pittman TEACHER VOCATIONAL TRAINING Unavailable [phone] Jeri Pittman TEACHER VOCATIONAL TRAINING Unavailable [phone] Encounter Details Date Type Department Care Team (Late st Contact Info) Description 02/04/2024 Abstract [facility] OB [address] [facility] [place] [id number] Corina Mathur PA [address] [facility] [address] [place], [place] [id number] Social History Tobacco Use Types Packs/Day Years Used Date Smoking Tobacco: Former Cigarettes Smokeless Tobacco: Never Alcohol Use Standard Drinks/Week Comments Yes 0 (1 standard drink = 0.6 oz pur e alcohol) Caffeine: 0-1 Humiliation, Afraid, Rape, and Kick questionnair e Answer Date Recorded Within the last year, have y ou been afraid of your partner or ex-partner? No 01/19/2023 Within the last year, have y ou been humiliated or emotionally abused in other ways by your partner or ex-partner? No Within the last year, have y ou been kicked, hit, slapped, or otherwise physically hurt by your partner or ex-partner? No 01/19/2023 Within the last year, have y ou been raped or forced to have any kind of sexual activity by your partner or ex-partner? No 01/19/2023 Social Connection and Isolation Panel [NHANES] A nswer Date Recorded In a typical week, how many times do you talk on the phone with family, friends, or neighbors? Patient declined 01/19/2023 How often do you get togethe r with friends or relatives? Patient declined 01/19/2023 How often do you attend judaism or mormonism serv ices? Patient declined 01/19/2023 Do you belong to any clubs o r organizations such as judaism groups, unions, fraternal or athletic groups, or school groups? Patient declined 01/19/2023 How often do you attend meet ings of the clubs or organizations you belong to? Patient declined 01/19/2023 Are you , , di vorced, , never , or living with a partner? 01/19/2023 AUDIT-C Answer Date Recorded Q1: How often do you have a drink containing alc ohol? Patient declined 01/19/2023 Q2: How many drinks containi ng alcohol do you have on a typical day when you are drinking? Patient declined 01/19/2023 Q3: How often do you have si x or more drinks on one occasion? Patient declined 01/19/2023 Overall Financial Resource Strain (CARDIA) Answe r Date Recorded How hard is it for you to pa y for the very basics like food, housing, medical care, and heating? Patient declined 01/19/2023 [facility] of Occupat ional [facility] - Occupational Stress Questionnaire Answer Date Recorded Do you feel stress - tense, restless, nervous, or anxious, or unable to sleep at night because your mind is troubled all the time - these days? Not at all 01/19/2023 Exercise Vital Sign Answer Date Recorde d On average, how many days pe r week do you engage in moderate to strenuous exercise (like a brisk walk)? 5 days 01/19/2023 On average, how many minutes do you engage in exercise at this level? 60 min 01/19/2023 Hunger Vital Sign Answer Date Recorded Within the past 12 months, y ou worried that your food would run out before you got the money to buy more. Patient declined Within the past 12 months, t he food you bought just didn't last and you didn't have money to get more. Patient declined PRAPARE - Transportation Answer Date Re corded In the past 12 months, has l ack of transportation kept you from medical appointments or from getting medications? No 01/01 In the past 12 months, has l ack of transportation kept you from meetings, work, or from getting things needed for daily living? No 01/19/2023 Housing Stability Vital Sign Answer Ramos e Recorded In the last 12 months, was t here a time when you were not able to pay the mortgage or rent on time? Patient refused 01/20/20 23 Number of Places Lived in the Last Year Not on f ile 01/19/2023 In the last 12 months, was t here a time when you did not have a steady place to sleep or slept in a intermediate (including now)? Patient refused 01/19/2023 Comments No Sex and Gender Information Value Date Recorded Sex Assigned at Not on file Legal Sex Female 6:39 PM EDT Gender Identity Female 07/15/2022 6:39 PM EDT Sexual Orientation Not on file documented as of this encounter Plan of Treatment Upcoming Encounters Date Type Department Care Team (Late st Contact Info) Description 10/25/2024 4:00 PM EDT Office Visit [facility] OB [address] [facility] [address] Corina Mathur PA [address] [place] [address] [place], [place] [id number] 07/09/2025 1:00 PM EDT Office Visit [facility] [address] [facility] [place] [address] Corina Mathur PA [address] [facility] [place] [address] documented as of this encounter Visit Diagnoses Not on filedocumented in this encounter Care Teams Detention Attendant Relationship Specialty Start Date End Date Angie Barcenas MD [address] [place] [address] PCP - General Family Medicine 10/15/22 Jeri Pittman NP [address] [place] [address] PCP - Medical [place] [employer] 06/03/23 06/15/24 Jeri Pittman NP [address] [place] [address] PCP - [place] [employer] 06/03/24 documented as of this encounter
--- OUTSIDE RECORDS SUMMARY | 2024-10-24 16:25 | XMS_ITS | Encounter Summary ---
Author Organization [facility] Address [address] [place] [address] Care Team Providers Care Technical Administrator Name Role Phone Jeri Pittman METAL MOLD DRESSER Unavailable Angie Barcenas MD Primary Care Provider [phone] Jeri Pittman METAL MOLD DRESSER Unavailable [phone] Jeri Pittman METAL MOLD DRESSER Unavailable [phone] Encounter Details Date Type Department Care Team (Late st Contact Info) Description 02/05/2023 Abstract [facility] [address] [facility] [place] [address] Angie Barcenas MD [address] [facility] [address] [place], [place] [id number] Social History Tobacco Use Types Packs/Day Years Used Date Smoking Tobacco: Former Cigarettes Smokeless Tobacco: Never Alcohol Use Standard Drinks/Week Comments Never 0 (1 standard drink = 0.6 oz pur e alcohol) Caffeine: pop Humiliation, Afraid, Rape, and Kick questionnair e [...] declined 01/19/2023 How often do you attend protestant or temple serv ices? Patient declined 01/19/2023 Do you belong to any clubs o r organizations such as protestant groups, unions, fraternal or athletic groups, or [...] medical care, and heating? Patient declined 01/19/2023 [facility] of Occupat ional [facility] - Occupational Stress Questionnaire Answer [...] place to sleep or slept in a alf (including now)? Patient refused 01/19/2023 Comments No [...] 10/25/2024 4:00 PM EDT Office Visit [facility] OB [address] [facility] [place] [address] Corina Mathur PA [address] [place] [address] [place], [place] [id number] 07/09/2025 1:00 PM EDT Office Visit [facility] OB [address] [facility] [place] [address] Corina Mathur PA [address] [facility] [place] [address] documented as of this encounter Visit Diagnoses Not on filedocumented in this encounter Care Teams Technical Administrator Relationship Specialty Start Date End Date Jeri Pittman NP [address] [place], [place] [id number] PCP - [place] [employer] 08/31/22 Angie Barcenas MD [address] [place], [place] [id number] PCP - General Family Medicine 10/15/22 Jeri Pittman NP [address] [place] [address] PCP - Medical [place] [employer] 06/03/23 06/15/24 Jeri Pittman NP [address] [place], [place] [id number] PCP - [place] [employer] 06/03/24 documented as of this encounter
--- OUTSIDE RECORDS SUMMARY | 2024-10-24 16:25 | XMS_ITS | Encounter Summary ---
Author Organization [facility] Address [address] [place] [address] Care Team Providers Care Field Merchandiser Name Role Phone Jeri Pittman BEHAVIOR SPECIALIST Unavailable [phone] Angie Barcenas MD Primary Care Provider [phone] Jeri Pittman BEHAVIOR SPECIALIST Unavailable [phone] Jeri Pittman BEHAVIOR SPECIALIST Unavailable [phone] Encounter Details Date Type Department Care Team (Late Contact Info) Description 12/15/2022 Abstract [facility] OB [address] [facility] [place] [address] Corina Mathur PA [address] [place] [address] [address] [place], [facility] Social History Tobacco Use Types Packs/Day Years Used Date Smoking Tobacco: Former Cigarettes Smokeless Tobacco: Never Alcohol Use Standard Drinks/Week Comments Never 0 (1 standard drink = 0.6 oz pur e alcohol) Caffeine: pop Comments No Sex and Gender Information Value Date Recorded Sex Assigned at Not on file Legal Sex Female 6:39 PM EDT Gender Identity Female 07/15/2022 6:39 PM EDT Sexual Orientation Not on file documented as of this encounter Plan of Treatment Upcoming Encounters Date Type Department Care Team (Late Contact Info) Description 10/25/2024 4:00 PM EDT Office Visit [facility] [address] [facility] [place] [address] Corina Mathur PA [address] [facility] [place] [address] 07/09/2025 1:00 PM EDT Office Visit [facility] OB [address] [facility] [place] [address] Corina Mathur PA [address] [facility] [address] [place], [place] [id number] documented as of this encounter Visit Diagnoses Not on filedocumented in this encounter Care Teams Field Merchandiser Relationship Specialty Start Date End Date Jeri Pittman NP [address] [place] [address] PCP - [place] [employer] 08/31/22 Angie Barcenas MD [address] [place] [address] PCP - General Family Medicine 10/15/22 Jeri Pittman NP [address] [place] [address] PCP - Medical [place] [employer] 06/03/23 06/15/24 Jeri Pittman NP [address] [place] [address] PCP - [place] [employer] 06/03/24 documented as of this encounter
--- OUTSIDE RECORDS SUMMARY | 2024-10-24 16:25 | XMS_ITS | Encounter Summary ---
Author Organization [facility] Address [address] [place] [address] Care Team Providers Care Cord Splicer Name Role Phone Angie Barcenas MD Primary Care Provider [phone] Jeri Pittman [employer]ROL POLICE OFFICER Unavailable [phone] Jeri Pittman [employer] POLICE OFFICER Unavailable [phone] Reason for Visit * Reason Onset Date Comments Med Refill 03/27/2024 Encounter Details Date Type Department Care Team (Late st Contact Info) Description 03/27/2024 Refill [facility] [address] [facility] [place] [address] Angie Barcenas MD [address] [facility] [address] [place], [place] [phone] Migraine without aura and without status migrainosus, not intractable Social History Tobacco Use Types Packs/Day Years [...] declined 01/19/2023 How often do you attend oriental orthodox or presybeterian serv ices? Patient declined 01/19/2023 Do you belong to any clubs o r organizations such as oriental orthodox groups, unions, fraternal or athletic groups, or [...] medical care, and heating? Patient declined 01/19/2023 [facility] - Occupational Stress Questionnaire Answer Date Recorded [...] place to sleep or slept in a assisted (including now)? Patient refused 01/19/2023 Comments No Sex and Gender Information Value Date Recorded Sex Assigned at Not on file Legal Sex Female 6:39 PM EDT Gender Identity Female 07/15/2022 6:39 PM EDT Sexual Orientation Not on file documented as of this encounter Miscellaneous Notes * Telephone Encounter - Angie Barcenas MD - 03/27/2024 8:22 PM EST Approving, but needs appt for additional refills. documented in this encounter Plan of Treatment Upcoming Encounters Date Type Department Care Team (Late st Contact Info) Description 10/25/2024 4:00 PM EDT Office Visit [facility] [address] [place] [address] Corina Mathur PA [address] [place] [address] 07/09/2025 1:00 PM EDT Office Visit [facility] OB [address] [place] [address] Corina Mathur PA [address] [place] [address] [place] [address] documented as of this encounter Visit Diagnoses Diagnosis Migraine without aura and without status migrainosus, not intractable documented in this encounter Care Teams Cord Splicer Relationship Specialty Start Date End Date Angie Barcenas MD [address] [place], [place] [id number] PCP - General Family Medicine 10/15/22 Jeri Pittman NP [address] [place], [place] [id number] PCP - Medical [place] [employer] 06/03/23 06/15/24 Jeri Pittman NP [address] [place], [place] [id number] PCP - [place] [employer] 06/03/24 documented as of this encounter
--- OUTSIDE RECORDS SUMMARY | 2024-10-24 16:25 | XMS_ITS | Clinical Summary ---
Author Organization [facility] Healthcare Address [address] [place] [address] Care Team Providers Care Brush Machine Setter Name Role Phone Angie Castellanos MD Primary Care Provider [phone] Jeri Pittman KETTLE WORKER Unavailable [phone] Allergies No known active allergies Medications Probiotic tablet delayed-release as directed Orally Active albuterol HFA 90 mcg/act inhalerIndicatio ns:Acute cough Inhale 2 puffs every 4 (four) hours if needed for wheezing 18 g 4 11/22/19 25 Active meclizine (Antivert) 25 MG tabletIndication s:Vertigo Take 0.5 tablets (12.5 mg) by mouth 2 (two) times a day as needed for dizziness 10 tablet 4 Active metFORMIN XR (Glucophage-XR) 500 MG 24 hr tabletIndication s:Weight gain Take 1 tablet (500 mg) by mouth in the evening. Take with meals Do not crush, chew, or split. 30 tablet 11 4 Active phentermine (Adipex-P) 37.5 MG tabletIndication s:Encounter for weight management Take 1 tablet (37.5 mg) by mouth in the morning. Take before meals. 30 tablet 5 Active phentermine (Adipex-P) 37.5 MG tabletIndication s:Encounter for weight management Take 1 tablet (37.5 mg) by mouth in the morning. Take before meals. 30 tablet 5 Active phentermine (Adipex-P) 37.5 MG tabletIndication s:Encounter for weight management Take 1 tablet (37.5 mg) by mouth in the morning. Take before meals. 90 tablet 5 10/30/19 25 Active rizatriptan (Maxalt) 10 MG tabletIndication s:Migraine without aura and without status migrainosus, not intractable Take 1 tablet (10 mg) by mouth Daily as needed for migraine 10 tablet 1 5 Active Active Problems Problem Noted Date Diagnosed Date Adjustment disorder with mixed anxiety and depre ssed mood 01/26/2023 Chronic tension-type headache, not intractable 0 01/26/2023 Assessment & Plan (01/26/2023 1:28 PM EDT): She uses flexeril prn which will help. Non morbid obesity due to excess calories 2022 Assessment & Plan (01/26/2023 1:28 PM EDT): Dr Green has her on metformin and adipex. Peripheral polyneuropathy 01/26/2023 Seasonal allergic rhinitis due to pollen 023 Migraine without aura and wi thout status migrainosus, not intractable 09/25/2022 Assessment & Plan (01/26/2023 1:33 PM EDT): Uses maxalt prn. Resolved Problems Problem Noted Date Diagnosed Date Resolved Date Chronic gastritis without bleeding 01/26/2023 01/26/2023 Irregular heart beat 01/26/2023 023 Encounters Date Type Department Care Team Description 09/15/2024 Refill [facility] [address] [place] [address] Angie Castellanos MD Migraine without aura and without status migrainosus, not intractable 08/14/2024 Refill [facility] [address] [place] [address] Angie Castellanos MD Migraine without aura and without status migrainosus, not intractable 08/03/2024 [address] [facility] [address] [place] [address] Iram Dill LPN 07/31/2024 3:50 PM EDT Office Visit [facility] OB [address] [place] [address] Corina Mathur PA Encounter for weight management 07/31/2024 Bamboo flowsheet [facility] OB [address] [place] [address] Corina Mathur PA from Last 3 Months Family History Medical History Relation Name Comments recovering alcoholic Brother Cancer Maternal Grandmother Depression Mother Asthma Sister 1 Endometriosis Sister 1 from parathyro id gland Marlene's thyroiditis Sister 1 Hypothyroidism Sister 1 Insulin resistance Sister 1 MTHFR Sister 1 Polycystic ovary syndrome Sister 1 Supraventricular tachycardia Sister 1 Vitamin D deficiency Sister 1 euthyroid sick syndrome Sister 1 idiopathic hives Sister 1 vitamin b12 deficiency Sister 1 Polycystic ovary syndrome Sister 2 Pulmonary embolism Sister 3 No Known Problems Son (4) Relation Name Status Comments Brother patient has 2 b rothers Father Alive Maternal Grandmother Alive Mother Alive Sister 1 Sister 2 Sister 3 Son (4) Alive Social History Tobacco Use Types Packs/Day Years Used Date Smoking Tobacco: Former Cigarettes Smokeless Tobacco: Never Tobacco Cessation:Counseling Given: Not Answered Alcohol Use Standard Drinks/Week Comments Yes 0 [...] declined 01/19/2023 How often do you attend advent or christian serv ices? Patient declined 01/19/2023 Do you belong to any clubs o r organizations such as advent groups, unions, fraternal or athletic groups, or [...] medical care, and heating? Patient declined 01/19/2023 [facility] - Occupational Stress Questionnaire Answer [...] place to sleep or slept in a prison (including now)? Patient refused 01/19/2023 Comments No Sex and Gender Information Value Date Recorded Sex Assigned at Not on file Legal Sex Female 6:39 PM EDT Gender Identity Female 07/15/2022 6:39 PM EDT Sexual Orientation Not on file Last Filed Vital Signs Vital Sign Reading Time Taken Comments Blood Pressure 116/78 07/31/2024 4:08 PM EDT Pulse 77 05/26/2023 2:47 PM EST Temperature 36.2 C (97.2 F) 11/22/2023 12:00 PM EDT Respiratory Rate - - Oxygen Saturation 99% 05/26/2023 2:47 PM EST Inhaled Oxygen Concentration - - Weight 110 kg (242 lb 12.8 oz) 07/31/2024 4:08 P M EDT Height 165.1 cm (5' 5 ) 12/20/2023 9:47 AM EDT Body Mass Index 40.4 12/20/2023 9:47 AM EDT Plan of Treatment Upcoming Encounters Date Type Department Care Team (Late st Contact Info) Description 10/25/2024 4:00 PM EDT Office Visit [facility] OB [address] [place] [address] [place] [address] Corina Mathur PA [address] [place] [address] [place], [place] [phone] 07/09/2025 1:00 PM EDT Office Visit [facility] OB [address] [place], [place] [address] [address] Corina Mathur, PA [address] [place] [address] [place] [address] Health Maintenance Due Date Last Done Comments CT Colonography 1978 Colonoscopy 1978 Colorectal Cancer Screening 1978 FIT-DNA 1978 FIT 1978 FOBT 1978 Sigmoidoscopy 1978 Mammogram 10/21/2024 10/22/2023, 08/01, 04/02/2021, Additional history exists Influenza Vaccine (Season Ended) 2025 Cervical Cancer Screening 07/03/2029 HPV/Cotest 07/03/2029 08/18/2022, 12/25/2019 Pap Smear 07/03/2029 07/03/2024, 08/17/2022 Procedures Procedure Name Priority Date/Time Associated Diagnosis Comments PAP SMEAR Routine 07/03/2024 12:00 AM EST MM TOMOSYNTHESIS SCREENING BI 10/22/2023 9:57 AM EDT THINPREP PAP AND HPV MRNA E6/E7 REFLEX HPV 16,18/45 Routine 08/18/2022 from Last 3 Months or Most Recently Relevant to Health Maintenance Results * Pap Smear (07/03/2024 12:00 AM EST) Swab Cervical swab / Unknown us Corina [facility] CYTOLOGY ORDERABLES Final Re sult EXTERNAL LAB * MM TOMOSYNTHESIS SCREENING BI (10/22/2023 9:57 AM EDT) Anatomical Region Laterality Modality Other 10/22/2023 9:57 AM EDT Narrative 10/22/2023 9:58 AM EDT The [address] [address] Mammography Report Signed Patient: TI LORENZO MR#: [id number] : 1980 Acct:[id number] Age/Sex: 43 / F ADM Date: 10/21/23 Loc: MAMMO Attending Dr: Jacoby Green D.O. Ordering Physician: Jacoby Green D.O. Results: Date of Service: 10/21/23 Follow Up: Procedure(s): MM tomosynthesis screening BI Accession Number(s): [id number] cc: Jacoby Green D.O.; ANGIE CASTELLANOS Patient Name: TI LORENZO MR#: [id number] : 1980 Exam Date: 10/21/2023 Ordering Doctor: DR Jacoby Green . RADIOLOGY REPORT PROCEDURE: MM TOMOSYNTHESIS SCREENING BI COMPARISON: MG MAMM SCREEN LINDA W CAD, 02/11/2018. MG MAMM SCREEN LINDA W CAD, 03/07/2019. INDICATIONS: Screening Calculator Name NCI Breast Cancer Risk Assessment Tool 5 Year Breast Cancer Risk 0.60% Lifetime Breast Cancer Risk 7.00% Personal Breast Cancer No Personal Ovarian Cancer No Treatments None Family Cancers None LOCATION: The [facility] BREAST COMPOSITION: There are scattered areas of fibroglandular density. FINDINGS: DIAGNOSTIC CATEGORY 1--NEGATIVE. NO CHANGE FROM COMPARISON ASSESSMENT. Scattered benign-appearing calcifications are present. Scattered benign-appearing lymph nodes are present. RIGHT BREAST: No significant suspicious finding. LEFT BREAST: No significant suspicious finding. RECOMMENDATIONS: ROUTINE MAMMOGRAM AND CLINICAL EVALUATION IN 12 MONTHS. PLEASE NOTE: A NORMAL MAMMOGRAM DOES NOT EXCLUDE THE POSSIBILITY OF BREAST CANCER. A CLINICALLY SUSPICIOUS PALPABLE LUMP SHOULD BE BIOPSIED. Dictated by: Jem Castro MD on 10/22/2023 at 09:39 Approved by: Jem Castro MD on 10/22/2023 at 09:57 Dictated By: Jem Castro M.D. Signed By: 10/22/23 0958 DD/ 0957 TD/TT: Workforce Manager: Procedure Note Radiology, Radiologist, - 10/22/2023 [place] [address] Mammography Report Signed Patient: TI LORENZO RMR#: [id number] : 1980Acct:[id number] Age/Sex: 43 / FADM Date: 10/21/23 Loc: MAMMO Attending Dr: Jacoby Green D.O. Ordering Physician: Jacoby Green D.O.Results: Date of Service: 10/21/23Follow Up: Procedure(s): MM tomosynthesis screening BI Accession Number(s): [id number] cc: Jacoby Green D.O.; ANGIE CASTELLANOS Patient Name: TI LORENZO MR#: [id number] : 1980 Exam Date: 10/21/2023 Ordering Doctor: DR Jacoby Green . RADIOLOGY REPORT PROCEDURE: MM TOMOSYNTHESIS SCREENING BI COMPARISON: MG MAMM SCREEN LINDA W CAD, 02/11/2018. MG MAMM SCREEN BILW CAD, 03/07/2019. INDICATIONS: Screening Calculator Name NCI Breast Cancer Risk Assessment Tool 5 Year Breast Cancer Risk 0.60% Lifetime Breast Cancer Risk 7.00% Personal Breast Cancer No Personal Ovarian Cancer No Treatments None Family Cancers None LOCATION: The [facility] BREAST COMPOSITION: There are scattered areas of fibroglandulardensity. FINDINGS: DIAGNOSTIC CATEGORY 1--NEGATIVE. NO CHANGE FROM COMPARISON ASSESSMENT. Scattered benign-appearing calcifications are present. Scattered benign-appearing lymph nodes are present. RIGHT BREAST: No significant suspicious finding. LEFT BREAST: No significant suspicious finding. RECOMMENDATIONS: ROUTINE MAMMOGRAM AND CLINICAL EVALUATION IN 12 MONTHS. PLEASE NOTE: A NORMAL MAMMOGRAM DOES NOT EXCLUDE THE POSSIBILITY OFBREAST CANCER. A CLINICALLY SUSPICIOUS PALPABLE LUMP SHOULD BE BIOPSIED. Dictated by: Jem Castro MD on 10/22/2023 at 09:39 Approved by: Jem Castro MD on 10/22/2023 at 09:57 Dictated By: Jem Castro M.D. Signed By:10/22/23 0958 DD/ 0957 TD/TT: Workforce Manager: us Generic External Data Provider [facility] Final Result * THINPREP PAP AND HPV MRNA E6/E7 REFLEX HPV 16,18/45 (08/18/2022) CLINICAL INFORMATION: None given [facility] LMP: NONE GIVEN [facility] PREV. PAP: NONE GIVEN [facility] PREV. BX: NONE GIVEN [facility] SOURCE: None given [facility] STATEMENT OF ADEQUACY: SEE COMMENT [facility] Comment: Satisfactory for evaluation. Endocervical/transformation zone component present. INTERPRETATION/R ESULT: Negative for intraepithelial lesion or malignancy. [facility] AFTER SCHOOL PROGRAM ASSISTANT : SEE COMMENT [facility] Comment: [facility], CT(ASCP) CT Screening Location: [place] [address] COMMENT SEE COMMENT [facility] Comment: EXPLANATORY NOTE: The Pap is a screening test for cervical cancer. It is not a diagnostic test and is subject to false negative and false positive results. It is most reliable when a satisfactory sample, regularly obtained, is submitted with relevant clinical findings and history, and when the Pap result is evaluated along with historic and current clinical information. HPV MRNA E6/E7 Not Detected Not Detected [facility] Comment: Methodology: Research Clerk-Mediated Amplification This assay detects E6/E7 viral messenger RNA (mRNA) from 14 high-risk HPV types (16,18,31,33,35,39,45,51,52,56,58,59,66,68). Cervical sources are required for HPV testing. If a vaginal source from a patient who has had a total hysterectomy with removal of cervix was submitted, please contact the testing laboratory for alternative testing options. For additional information, please refer to http://education.Viacor/faq/OSK371v0 (This link if provided for information/ educational purposes only.) 08/18/2022 [facility] Final Result Performing Organization Address City/State/[facility] Co de Phone Number [facility] from Last 3 Months or Most Recently Relevant to Health Maintenance Insurance BS Care Teams Brush Machine Setter Relationship Specialty Start Date End Date Angie Castellanos MD [address] [place], [place] [phone] PCP - General Family Medicine 10/15/22 Jeri Pittman NP [address] [place] [address] PCP - Karime Rehman 06/03/24
--- OUTSIDE RECORDS SUMMARY | 2024-10-24 16:25 | XMS_ITS | Encounter Summary ---
Author Organization [facility] Address [address] [place] [address] Care Team Providers Care Web Application Dev Specialist Name Role Phone Luis F Barcenas MD Primary Care Provider [phone] Jeri Pittman CONCRETE HOPPER OPERATOR Unavailable [phone] Jeri Pittman CONCRETE HOPPER OPERATOR Unavailable [phone] Encounter Details Date Type Department Care Team (Late st Contact Info) Description 10/22/2023 Clinisync Result Encounter [facility] External Department Unsolicited Provider, Generic External Data Social History Tobacco Use Types Packs/Day Years [...] declined 01/19/2023 How often do you attend bahai or moravian serv ices? Patient declined 01/19/2023 Do you belong to any clubs o r organizations such as bahai groups, unions, fraternal or athletic groups, or [...] medical care, and heating? Patient declined 01/19/2023 [facility] Occupat ional [facility] - Occupational Stress Questionnaire Answer [...] 10/25/2024 4:00 PM EDT Office Visit [facility] OB [address] [address] Corina Mathur PA [address] [place] [address] [place] [address] 07/09/2025 1:00 PM EDT Office Visit [facility] OB [address] [address] Corina Mathur PA [address] [place] [address] [place] [address] documented as of this encounter Procedures Procedure Name Priority Date/Time Associated Diagnosis Comments MM TOMOSYNTHESIS SCREENING BI 10/22/2023 9:57 AM EDT documented in this encounter Results * MM TOMOSYNTHESIS SCREENING BI (10/22/2023 9:57 AM EDT) Anatomical Region Laterality Modality Other 10/22/2023 9:57 AM EDT Narrative 10/22/2023 9:58 AM EDT The [address] [address] Mammography Report Signed Patient: CANDIDA LORENZO MR#: [id number] : 1980 Acct:[id number] Age/Sex: 43 / F ADM Date: 10/21/23 Loc: MAMMO Attending Dr: Jacoby Green D.O. Ordering Physician: Jacoby Green D.O. Results: Date of Service: 10/21/23 Follow Up: Procedure(s): MM tomosynthesis screening BI Accession Number(s): [id number] cc: Jacoby Green D.O.; JASMINLUIS F SERRANO Patient Name: CANDIDA LORENZO MR#: [id number] : 1980 Exam Date: 10/21/2023 Ordering Doctor: [...] Treatments None Family Cancers None LOCATION: The [facility] BREAST COMPOSITION: There are scattered areas of [...] Signed By: 10/22/23 0958 DD/ 0957 TD/TT: Renewable Energy Division Manager: Procedure Note Radiology, Radiologist, - 10/22/[address] [place] [address] Mammography Report Signed Patient: CANDIDA LORENZO RMR#: [id number] : 1980Acct:[id number] Age/Sex: 43 / FADM Date: 10/21/23 Loc: MAMMO Attending Dr: Jacoby Green D.O. Ordering Physician: Jacoby Green D.O.Results: Date of Service: 10/21/23Follow Up: Procedure(s): MM tomosynthesis screening BI Accession Number(s): [id number] cc: Jacoby Green D.O.; JASMINLUIS F Patient Name: CANDIDA LOREZNO MR#: [id number] : 1980 Exam Date: 10/21/2023 Ordering Doctor: [...] Treatments None Family Cancers None LOCATION: The [facility] BREAST COMPOSITION: There are scattered areas of [...] M.D. Signed By:10/22/23 0958 DD/ 0957 TD/TT: Renewable Energy Division Manager: us Generic External Data Provider [facility] Final Result documented in this encounter Visit Diagnoses Not on filedocumented in this encounter Care Teams Web Application Dev Specialist Relationship Specialty Start Date End Date Luis F Barcenas MD [address] [place] [address] PCP - General Family Medicine 10/15/22 Jeri Pittman NP [address] [place], [place] [phone] PCP - Medical [place] [employer] 06/03/23 06/15/24 Jeri Pittman NP [address] [place], [place] [phone] PCP - [place] [employer] 06/03/24 documented as of this encounter
--- OUTSIDE RECORDS SUMMARY | 2024-10-24 16:25 | XMS_ITS | Encounter Summary ---
Author Organization [facility] Address [address] [place] [address] Care Team Providers Care Chart Calculator Name Role Phone Angie Barcenas MD Primary Care Provider [phone] Jeri Pittman RECOVERY OPERATOR Unavailable [phone] Jeri Pittman RECOVERY OPERATOR Unavailable Reason for Visit * Reason Comments New Med Request Encounter Details Date Type Department Care Team (Late st Contact Info) Description 10/12/2023 Refill [facility] [address] [facility] [place] [address] Angie Barcenas MD [address] [facility] [address] [place], [place] [id number] Migraine without aura and without status migrainosus, [...] declined 01/19/2023 How often do you attend lutheran or druze serv ices? Patient declined 01/19/2023 Do you belong to any clubs o r organizations such as lutheran groups, unions, fraternal or athletic groups, or [...] medical care, and heating? Patient declined 01/19/2023 [facility] of Occupat ional [facility] - Occupational Stress Questionnaire Answer Date Recorded [...] place to sleep or slept in a residential (including now)? Patient refused 01/19/2023 Comments No Sex and Gender Information Value Date Recorded Sex Assigned at Not on file Legal Sex Female 6:39 PM EDT Gender Identity Female 07/15/2022 6:39 PM EDT Sexual Orientation Not on file documented as of this encounter Miscellaneous Notes * Telephone Encounter - Angie Barcenas MD - 10/12/2023 5:04 PM EDT Approving, but needs appt for additional refills. documented in this encounter Plan of Treatment Upcoming Encounters Date Type Department Care Team (Late st Contact Info) Description 10/25/2024 4:00 PM EDT Office Visit [facility] OB [address] [place] [address] Corina Mathur PA [facility] [place] [address] 07/09/2025 1:00 PM EDT Office Visit [facility] [address] [place] [address] Corina Mathur PA [address] [place] [address] [place] [address] documented as of this encounter Visit Diagnoses Diagnosis Migraine without aura and without status migrainosus, not intractable documented in this encounter Care Teams Chart Calculator Relationship Specialty Start Date End Date Angie Barcenas MD [address] [place], [place] [phone] PCP - General Family Medicine 10/15/22 Jeri Pittman NP [address] [place], [place] [phone] PCP - Medical [place] [employer] 06/03/23 06/15/24 Jeri Pittman NP [address] [place], [place] [phone] PCP - [place] [employer] 06/03/24 documented as of this encounter
--- OUTSIDE RECORDS SUMMARY | 2024-10-24 16:25 | XMS_ITS | Encounter Summary ---
Author Organization [facility] Address [address] [place] [address] Care Team Providers Care Special Education Classroom Aide Name Role Phone Jeri Pittman VIDEO SPECIALIST Unavailable [phone] Angie Barcenas MD Primary Care Provider [phone] Jeri Pittman VIDEO SPECIALIST Unavailable [phone] Jeri Pittman VIDEO SPECIALIST Unavailable [phone] Encounter Details Date Type Department Care Team (Late st Contact Info) Description 06/16/2023 Abstract [facility] [address] [place] [address] Christi Blake LPN [address] [place] [address] Social History Tobacco Use Types Packs/Day Years [...] declined 01/19/2023 How often do you attend pentecostal or hoahaoism serv ices? Patient declined 01/19/2023 Do you belong to any clubs o r organizations such as pentecostal groups, unions, fraternal or athletic groups, or [...] medical care, and heating? Patient declined 01/19/2023 [facility] of Occupat ional [facility] - Occupational Stress Questionnaire Answer Date Recorded [...] place to sleep or slept in a detention (including now)? Patient refused 01/19/2023 Comments No [...] 10/25/2024 4:00 PM EDT Office Visit [facility] OB [address] [place] [address] [place] [phone] Corina Mathur PA [address] [place] [address] [place] [address] 07/09/2025 1:00 PM EDT Office Visit [facility] OB [address] [place] [address] [place] [address] Corina Mathur PA [address] [place] [address] [place], [place] [phone] documented as of this encounter Visit Diagnoses Not on filedocumented in this encounter Care Teams Special Education Classroom Aide Relationship Specialty Start Date End Date Jeri Pittman NP [address] [place] [address] PCP - [place] [employer] 08/31/22 Angie Barcenas MD [address] [place] [phone] PCP - General Family Medicine 10/15/22 [place] [address] [place] [id number] PCP - Medical [place] [employer] 06/03/23 06/15/24 Jeri Pittman NP [address] [place], [place] [phone] PCP - [place] [employer] 06/03/24 documented as of this encounter
--- OUTSIDE RECORDS SUMMARY | 2024-10-24 16:25 | XMS_ITS | Encounter Summary ---
Author Organization [facility] Address [address] [place] [address] Care Team Providers Care Sewing Teacher Name Role Phone Jeri Pittman SAMPLE BOX MAKER Unavailable [phone] Angie Barcenas MD Primary Care Provider [phone] Jeri Pittman SAMPLE BOX MAKER Unavailable [phone] Jeri Pittman SAMPLE BOX MAKER Unavailable [phone] Encounter Details Date Type Department Care Team (Late st Contact Info) Description 01/15/2023 Clinisync Result Encounter [facility] External Department Unsolicited [...] declined 01/19/2023 How often do you attend mormonism or mandaeism serv ices? Patient declined 01/19/2023 Do you belong to any clubs o r organizations such as mormonism groups, unions, fraternal or athletic groups, or [...] medical care, and heating? Patient declined 01/19/2023 [facility] of Occupat ional Health - Occupational Stress [...] place to sleep or slept in a penitentiary (including now)? Patient refused 01/19/2023 Comments No [...] EDT Office Visit [facility] [address] [place] [address] Corina Mathur PA [address] [place] [address] [place] [address] 07/09/2025 1:00 PM EDT Office Visit [facility] OB [address] [place] [address] Corina Mathur PA [address] [place] [address] [place] [address] documented as of this encounter Procedures Procedure Name Priority Date/Time Associated Diagnosis Comments ECG 12-LEAD 01/15/2023 3:12 PM EDT documented in this encounter Results * ECG 12-LEAD (01/15/2023 3:12 PM EDT) Anatomical Region Laterality Modality Other 01/15/2023 3:12 PM EDT Narrative 01/15/2023 3:12 [place] [address] Electrocardiograph Report Signed Patient: TI LORENZO MR#: [id number] : 1980 Acct:[id number] Age/Sex: 42 / F ADM Date: Loc: SURGOUT Attending Dr: Candido Hassan M.D. Ordering Physician: Jaimee Green D.O. Date of Service: 01/15/23 Procedure(s): ECG 12 lead Accession Number(s): [id number] cc: [facility] Test Date: 2023-01-15 Pat Name: TI LORENZO Department: Room: - Gender: Female Depilatory Painter: : 1980 Requested By: JAIMEE GREEN Order Number: [id number] Reading MD: CHICHO PINEDA Measurements Intervals [place] Rate: 65 P: 49 MA: 159 QRS: -1 QRSD: 87 T: 16 QT: 378 QTc: 395 Interpretive Statements SINUS RHYTHM LOW QRS VOLTAGE IN PRECORDIAL LEADS [QRS DEFLECTION < 1.0 mV IN CHEST LEADS] No previous ECG available for comparison Electronically Signed On 01-18-2023 13:05:09 EDT by CHICHO PINEDA Dictated By: Chicho Pineda M.D. Signed By: 01/18/23 1305 DD/ 1512 TD/TT: Automobile Locator: Procedure Note Radiology, Radiologist, MD - 01/21/2023 [facility] [place] [id number] Electrocardiograph Report Signed Patient: TI LORENZO RMR#: [id number] : 1980Acct:[id number] Age/Sex: 42 / FADM Date: Loc: SURGOUT Attending Dr: Candido Hassan M.D. Ordering Physician: Jaimee Green D.O. Date of Service: 01/15/23 Procedure(s): ECG 12 lead Accession Number(s): [id number] cc: 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 Signed By:01/18/23 1305 DD/ 1512 TD/TT: Automobile Locator: Generic External Data Provider [facility] Final Result documented in this encounter Visit Diagnoses Not on filedocumented in this encounter Care Teams Sewing Teacher Relationship Specialty Start Date End Date Jeri Pittman NP [address] [place] [address] PCP - [place] [employer] 08/31/22 Angie Barcenas MD [address] [place] [address] PCP - General Family Medicine 10/15/22 Jeri Pittman NP [address] [place] [address] PCP - Medical [place] [employer] 06/03/23 06/15/24 Jeri Pittman NP [address] [place] [address] PCP - [place] [employer] 06/03/24 documented as of this encounter
--- OUTSIDE RECORDS SUMMARY | 2024-10-24 16:25 | XMS_ITS | Encounter Summary ---
Author Organization [facility] Address [address] [facility] [place] [address] Care Team Providers Care Inventory Control Manager Name Role Phone Angie Barcenas MD Primary Care Provider Jeri Pittman BACK UP SCAN COORDINATOR Unavailable [phone] Jeri Pittman BACK UP SCAN COORDINATOR Unavailable [phone] Reason for Visit * Reason Comments Med Refill Encounter Details Date Type Department Care Team (Late st Contact Info) Description 12/08/2023 Refill [facility] [address] [facility] [place] [address] Angie Barcenas MD [address] [facility] [place], [place] [phone] Migraine without aura and without status migrainosus, [...] declined 01/19/2023 How often do you attend caodaism or mandaeism serv ices? Patient declined 01/19/2023 Do you belong to any clubs o r organizations such as caodaism groups, unions, fraternal or athletic groups, or [...] medical care, and heating? Patient declined 01/19/2023 [facility] of Occupat ional [facility] - Occupational Stress Questionnaire Answer Date [...] place to sleep or slept in a custodial (including now)? Patient refused 01/19/2023 Comments No Sex and Gender Information Value Date Recorded Sex Assigned at Not on file Legal Sex Female 6:39 PM EDT Gender Identity Female 07/15/2022 6:39 PM EDT Sexual Orientation Not on file documented as of this encounter Miscellaneous Notes * Telephone Encounter - Mya Olivera MA - 12/09/2023 8:45 AM EDT Approving, but needs appt for additional refills. documented in this encounter Plan of Treatment Upcoming Encounters Date Type Department Care Team (Late st Contact Info) Description 10/25/2024 4:00 PM EDT Office Visit [facility] OB [address] [facility] [place] [address] Corina Mathur PA [facility] [place] [address] 07/09/2025 1:00 PM EDT Office Visit [facility] OB [address] [place] [address] Corina Mathur PA [address] [place] [address] documented as of this encounter Visit Diagnoses Diagnosis Migraine without aura and without status migrainosus, not intractable documented in this encounter Care Teams Inventory Control Manager Relationship Specialty Start Date End Date Angie Barcenas MD [address] [place], [place] [phone] PCP - General Family Medicine 10/15/22 Jeri Pittman NP [address] [place], [place] [id number] PCP - Medical [place] [employer] 06/03/23 06/15/24 Jeri Pittman NP [address] [place], [place] [phone] PCP - [place] [employer] 06/03/24 documented as of this encounter
--- OUTSIDE RECORDS SUMMARY | 2024-10-24 16:25 | XMS_ITS | Clinical Summary ---
Author Organization [facility] Address [id number] [address] [place] [address] Care Team Providers Care Batch Freezer Operator Name Role Phone Angie Barcenas MD Primary Care Provider [phone] Social History Tobacco Use Types Packs/Day Years Used Date Smoking Tobacco: Never Assessed Childcare Answer Date Recorded Childcare Unknown 10/12/2018 Employment Answer Date Recorded Employment Unknown 10/12/2018 Purpose - Life Answer Date Recorded Purpose and direction in life Unknown Comments Unknown Sex and Gender Information Value Date Recorded Sex Assigned at Not on file Legal Sex Female 12:02 PM EDT Gender Identity Not on file Sexual Orientation Not on file Plan of Treatment Not on file Medical Devices Not on file Insurance [place] [employer] Care Teams Batch Freezer Operator Relationship Specialty Start Date End Date Angie Barecnas MD [address] [place] [address] PCP - General Family Medicine 10/22/16
--- OUTSIDE RECORDS SUMMARY | 2024-10-24 16:25 | XMS_ITS | Encounter Summary ---
Author Organization [facility] Address [address] [place] [address] Care Team Providers Care Certified Rehabilitation Counselor Name Role Phone Jeri Pittman MANAGER STRATEGIC Unavailable [phone] Angie Barcenas MD Primary Care Provider [phone] Jeri Pittman MANAGER STRATEGIC Unavailable [phone] Jeri Pittman MANAGER STRATEGIC Unavailable [phone] Encounter Details Date Type Department Care Team (Late st Contact Info) Description 07/14/2023 Abstract [facility] OB [address] [place] [address] Christi Blake LPN [address] [place] [address] Social History Tobacco Use Types [...] How often do you attend caodaism or spiritism serv ices? Patient declined 01/19/2023 Do you [...] medical care, and heating? Patient declined 01/19/2023 [facility] of Occupat ional [facility] - Occupational Stress Questionnaire Answer Date [...] 10/25/2024 4:00 PM EDT Office Visit [facility] OB [address] [place] [address] [place] [address] Corina Mathur PA [address] [place] [address] [place] [address] 07/09/2025 1:00 PM EDT Office Visit [facility] OB [address] [place] [address] [place] [address] Corina Mathur PA [address] [place] [address] [place], [place] [id number] documented as of this encounter Visit Diagnoses Not on filedocumented in this encounter Care Teams Certified Rehabilitation Counselor Relationship Specialty Start Date End Date Jeri Pittman NP [address] [place] [address] PCP - [place] [employer] 08/31/22 Angie Barcenas MD [address] [place] [id number] PCP - General Family Medicine 10/15/22 [place] [address] [place] [id number] PCP - Medical [place] [employer] 06/03/23 06/15/24 Jeri Pittman NP [address] [place], [place] [id number] PCP - [place] [employer] 06/03/24 documented as of this encounter
--- OUTSIDE RECORDS SUMMARY | 2024-10-24 16:25 | XMS_ITS | Encounter Summary ---
Author Organization [facility] Address [address] [place] [address] Care Team Providers Care Tin Container Straightener Name Role Phone Angie Barcenas MD Primary Care Provider [phone] Jeri Pittman AGED OR DISABLED CARE WORKER Unavailable Jeri Pittman AGED OR DISABLED CARE WORKER Unavailable [phone] Encounter Details Date Type Department Care Team (Late st Contact Info) Description 10/08/2023 Abstract [facility] OB [address] [place] [address] Christi Blake LPN [address] [place] [address] Social History Tobacco Use Types [...] declined 01/19/2023 How often do you attend mu-ism or yazdanism serv ices? Patient declined 01/19/2023 Do you belong to any clubs o r organizations such as mu-ism groups, unions, fraternal or athletic groups, or [...] [facility] of Occupat ional [facility] - Occupational Stress Questionnaire Answer Date [...] place to sleep or slept in a care home (including now)? Patient refused 01/19/2023 Comments No [...] 10/25/2024 4:00 PM EDT Office Visit [facility] OB [address] [facility] [place] [address] Corina Mathur PA [address] [place] [address] [place] [address] 07/09/2025 1:00 PM EDT Office Visit [facility] OB [address] [facility] [place] [address] Corina Mathur PA [address] [facility] [place] [address] documented as of this encounter Visit Diagnoses Not on filedocumented in this encounter Care Teams Tin Container Straightener Relationship Specialty Start Date End Date Angie Barcenas MD [address] [place] [address] PCP - General Family Medicine 10/15/22 Jeri Pittman NP [address] [place] [address] PCP - Medical [place] Commercial 06/03/23 06/15/24 Jeri Pittman NP [address] [place] [address] PCP - [place] [employer] 06/03/24 documented as of this encounter
--- OUTSIDE RECORDS SUMMARY | 2024-10-24 16:25 | XMS_ITS | Encounter Summary ---
Author Organization [facility] Address [address] [place] [address] Care Team Providers Care Oven Worker Name Role Phone Jeri Pittman ROPE COILING MACHINE OPERATOR Unavailable [phone] Angie Barcenas MD Primary Care Provider [phone] Jeri Pittman ROPE COILING MACHINE OPERATOR Unavailable [phone] Jeri Pittman ROPE COILING MACHINE OPERATOR Unavailable [phone] Encounter Details Date Type Department Care Team (Late st Contact Info) Description 09/13/2023 Abstract [facility] OB [address] [place] [address] Christi Blake LPN [address] [place] [address] Social History Tobacco Use Types [...] declined 01/19/2023 How often do you attend christianity or taoist serv ices? Patient declined 01/19/2023 Do you belong to any clubs o r organizations such as christianity groups, unions, fraternal or athletic groups, or [...] medical care, and heating? Patient declined 01/19/2023 [facility] of Occupat ional [facility] - Occupational Stress Questionnaire Answer Date [...] place to sleep or slept in a long-term (including now)? Patient refused 01/19/2023 Comments No [...] 10/25/2024 4:00 PM EDT Office Visit [facility] OB [address] [place] [address] [place] [phone] Corina Mathur PA [address] [place] [address] [place] [address] 07/09/2025 1:00 PM EDT Office Visit [facility] OB [address] [place] [address] [place] [address] Corina Mathur PA [address] [place] [address] [place], [place] [id number] documented as of this encounter Visit Diagnoses Not on filedocumented in this encounter Care Teams Oven Worker Relationship Specialty Start Date End Date Jeri Pittman NP [address] [place] [address] PCP - [place] [employer] 08/31/22 Angie Barcenas MD [address] [place] [id number] PCP - General Family Medicine 10/15/22 [place] [address] [place] [id number] PCP - Medical [place] Commercial 06/03/23 06/15/24 Jeri Pittman NP [address] [place], [place] [phone] PCP - [place] [employer] 06/03/24 documented as of this encounter
--- OUTSIDE RECORDS SUMMARY | 2024-10-24 16:25 | XMS_ITS | Encounter Summary ---
Author Organization [facility] Address [address] [place] [address] Care Team Providers Care Lead Assistant Manager Name Role Phone Jeri Pittman CISCO NETWORK ENGINEER Unavailable Angie Barcenas MD Primary Care Provider Jeri Pittman CISCO NETWORK ENGINEER Unavailable Jeri Pittman CISCO NETWORK ENGINEER Unavailable [phone] Encounter Details Date Type Department Care Team (Late st Contact Info) Description 02/02/2023 Orders Only [facility] FM [address] [facility] [place] [address] Angie Barcenas MD [address] [facility] [place], [place] [phone] Chronic tension-type headache, not intractable (Primary Dx) Social History Tobacco Use Types Packs/Day Years [...] How often do you attend bahai or buddhism serv ices? Patient declined 01/19/2023 Do you [...] declined 01/19/2023 [facility] - Occupational Stress Questionnaire [...] place to sleep or slept in a chcf (including now)? Patient refused 01/19/2023 Comments No [...] 4:00 PM EDT Office Visit [facility] OB [address] [facility] [address] Corina Mathur PA [address] [place] [address] [place] [address] 07/09/2025 1:00 PM EDT Office Visit [facility] OB [address] [facility] [address] Corina Mathur PA [address] [place] [address] [place] [address] documented as of this encounter Visit Diagnoses Diagnosis Chronic tension-type headache, not intractable- Primary Chronic tension type headache documented in this encounter Care Teams Lead Assistant Manager Relationship Specialty Start Date End Date Jeri Pittman NP [address] [place], [place] [phone] PCP - [place] [employer] 08/31/22 Angie Barcenas MD [address] [place], [place] [address] PCP - General Family Medicine 10/15/22 Jeri Pittman NP [address] [place], [place] [phone] PCP - Medical [place] Commercial 06/03/23 06/15/24 Jeri Pittman NP [address] [place], [place] [phone] PCP - [place] [employer] 06/03/24 documented as of this encounter
--- OUTSIDE RECORDS SUMMARY | 2024-10-24 16:25 | XMS_ITS | Encounter Summary ---
Author Organization [facility] Address [address] [facility] [place] [address] Care Team Providers Care Dba Name Role Phone Jeri Pittman APPLICATION SYSTEMS ADMINISTRATOR Unavailable Angie Barcenas MD Primary Care Provider [phone] Jeri Pittman APPLICATION SYSTEMS ADMINISTRATOR Unavailable [phone] Jeri Pittman APPLICATION SYSTEMS ADMINISTRATOR Unavailable [phone] Reason for Visit * Reason Comments Med Change Request Encounter Details Date Type Department Care Team (Late st Contact Info) Description 09/25/2022 Refill [facility] FM [address] [place] [phone] Angie Barcenas MD [address] [facility] [place], [place] [phone] Migraine without aura and without status migrainosus, not intractable Social History Tobacco Use Types Packs/Day Years Used Date Smoking Tobacco: Never Assessed Comments Unknown Sex and Gender Information Value Date Recorded Sex Assigned at Not on file Legal Sex Female 6:39 PM EDT Gender Identity Female 07/15/2022 6:39 PM EDT Sexual Orientation Not on file documented as of this encounter Miscellaneous Notes * Telephone Encounter - Angie Barcenas MD - 09/25/2022 4:39 PM EDT Refills sent. documented in this encounter Plan of Treatment Upcoming Encounters Date Type Department Care Team (Late st Contact Info) Description 10/25/2024 4:00 PM EDT Office Visit [facility] OB [address] [place] [address] Corina Mathur, PA [address] [facility] [place] [address] 07/09/2025 1:00 PM EDT Office Visit [facility] OB [address] [place] [address] Corina Mathur, PA [address] [facility] [place] [address] documented as of this encounter Visit Diagnoses Diagnosis Migraine without aura and without status migrainosus, not intractable documented in this encounter Care Teams Dba Relationship Specialty Start Date End Date Jeri Pittman NP [address] [place] [address] PCP - [place] [employer] 08/31/22 Angie Barcenas MD [address] [place] [address] PCP - General Family Medicine 10/15/22 Jeri Pittman NP [address] [place] [address] PCP - Medical [place] Commercial 06/03/23 06/15/24 Jeri Pittman NP [address] [place] [address] PCP - [place] [employer] 06/03/24 documented as of this encounter
--- OUTSIDE RECORDS SUMMARY | 2024-10-24 16:25 | XMS_ITS | Encounter Summary ---
Author Organization [facility] Address [address] [place] [address] Care Team Providers Care Signaling Project Engineer Name Role Phone Angie Barcenas MD Primary Care Provider Jeri Pittman PLATFORM MAN Unavailable [phone] Encounter Details Date Type Department Care Team (Late st Contact Info) Description 07/17/2024 Orders Only [facility] OB [address] [facility] [place] [address] Agatha Martinez [place] [address] [facility] [place] [address] Social History Tobacco Use Types Packs/Day Years [...] declined 01/19/2023 How often do you attend jew or restoration serv ices? Patient declined 01/19/2023 Do you belong to any clubs o r organizations such as jew groups, unions, fraternal or athletic groups, or [...] medical care, and heating? Patient declined 01/19/2023 [facility] of Occupat ional Health - Occupational Stress [...] place to sleep or slept in a usp (including now)? Patient refused 01/19/2023 Comments No [...] 10/25/2024 4:00 PM EDT Office Visit [facility] OB [address] [facility] [place] [address] Corina Mathur PA [address] [place] [address] [place] [address] 07/09/2025 1:00 PM EDT Office Visit [facility] OB [address] [facility] [place] [address] Corina Mathur PA [address] [place] [address] [place] [address] documented as of this encounter Procedures Procedure Name Priority Date/Time Associated Diagnosis Comments PAP SMEAR Routine 07/03/2024 12:00 AM EST documented in this encounter Results * Pap Smear (07/03/2024 12:00 AM EST) Swab Cervical swab / Unknown Corina [facility] ORDERABLES Final Re sult EXTERNAL LAB documented in this encounter Visit Diagnoses Not on filedocumented in this encounter Care Teams Signaling Project Engineer Relationship Specialty Start Date End Date Angie Barcenas MD [address] [place], [place] [phone] PCP - General Family Medicine 10/15/22 Jeri Pittman NP [address] [place], [place] [phone] PCP - Karime Rehman 06/03/24 documented as of this encounter
--- OUTSIDE RECORDS SUMMARY | 2024-10-24 16:25 | XMS_ITS | Encounter Summary ---
Author Organization [facility] Address [address] [place] [address] Care Team Providers Care Aerosol Supervisor Name Role Phone Jeri Pittman RECORD MAKER Unavailable [phone] Angie Barcenas MD Primary Care Provider [phone] Jeri Pittman RECORD MAKER Unavailable [phone] Jeri Pittman RECORD MAKER Unavailable [phone] Encounter Details Date Type Department Care Team (Late st Contact Info) Description 10/21/2022 Abstract [facility] OB [address] [place] [address] [facility] [address] Sarika Diallo, [facility] Social History Tobacco Use Types Packs/Day Years Used Date Smoking Tobacco: Former Cigarettes Smokeless Tobacco: Never Alcohol Use Standard Drinks/Week Comments Never 0 (1 standard drink = 0.6 oz pur e alcohol) Caffeine: pop Comments Unknown Sex and Gender Information Value Date Recorded Sex Assigned at Not on file Legal Sex Female 6:39 PM EDT Gender Identity Female 07/15/2022 6:39 PM EDT Sexual Orientation Not on file documented as of this encounter Plan of Treatment Upcoming Encounters Date Type Department Care Team (Late st Contact Info) Description 10/25/2024 4:00 PM EDT Office Visit [facility] OB [address] [place] [address] Corina Mathur PA [address] [place] [address] [place] [address] 07/09/2025 1:00 PM EDT Office Visit [facility] OB [address] [facility] [place] [address] Corina Mathur, PA [address] [facility] [address] [place], [place] [id number] documented as of this encounter Visit Diagnoses Not on filedocumented in this encounter Care Teams Aerosol Supervisor Relationship Specialty Start Date End Date Jeri Pittman NP [address] [place] [address] PCP - [place] [employer] 08/31/22 Angie Barcenas MD [address] [place] [address] PCP - General Family Medicine 10/15/22 Jeir Pittman NP [address] [place] [address] PCP - Medical [place] Commercial 06/03/23 06/15/24 Jeri Pittman NP [address] [place] [address] PCP - [place] [employer] 06/03/24 documented as of this encounter
== END 2024-10-24 16:22 | disposition home or self-care (01) ==
LOC: MAMMO 16:21
PROVIDERS: PCP Family Medicine; Visit Provider Obstetrics & Gynecology
DX: Z12.31 Encounter for screening mammogram for malignant neoplasm of breast (principal)
CPT/HCPCS: 77063; 77067